=== PATIENT | female | born 1940 | race African-American/Black ===

== ENCOUNTER → 2017-01-30 | Outpatient (CLI) | payer OTHER ==
[~2017-01-30] VITALS: Ht 165.1 cm; Wt 88.9 kg
[~2017-01-30] MED LIST: ADULT LOW DOSE81 MG PO; AFLURIA 2045 MCG/010 IM; ALLEGRA ALLERG180 MG PO; ALLERGY10 M1 PO; ATORVASTATIN CA40 MG PO; BENADRYL25 MG PO; BRILINTA90 MG PO; CALCIUM 500 +1 EAC5 PO; CHLORTHALIDONE25 MG PO; CLARITIN10 MG PO; COLACE100 MG PO; CORICIDIN HBP1 EAC2; DOXYCYCLINE 10100 MG PO; EFFIENT10 MG PO; EQL GLUCOSAMIN1 EAC3 PO; FLAX OIL1000 MG PO; FLONASE 0.05%50 MCG NASAL; HYDROCODON-ACE1 EAC2 PO; HYDROCODON-ACE1 EAC7 PO; HYDROCODON-ACE1 EAC8 PO; HYDROCODONE-AP1 EA11 PO; HYDROCODONE-AP1 EAC6 PO; IBUPROFEN 400400 M1 PO; IBUPROFEN 400400 M2 PO; K-DUR 20 MEQ T20 MEQ PO; KLOR-CON 10 ER10 MEQ PO; KLOR-CON 1010 MEQ PO; LASIX 20 MG TAB20 MG PO; LIPITOR20 MG PO; LIPITOR40 MG PO; LISINOPRIL-HCT1 EAC2 PO; LISINOPRIL10 MG PO; LISINOPRIL20 MG PO; LISINOPRIL30 MG PO; MEDROLDOSEPACK PO; METOPROLOL TART25 MG PO; NABUMETONE 500500 M1 PO; NASONEX17 GM NASAL; NEURONTIN 300300 M1 PO; NIACIN 100MG T100 M1 PO; NITROSTAT0.4 M1 SL; NITROSTAT0.4 MG SL; NORCO 5-325 TA1 EACH PO; NORVASC5 MG PO; PEPCID20 MG PO; PLAVIX 75 MG TA75 M1 PO; POTASSIUM20 PO; PREDNISONE 20 M20 MG PO; TOPROL XL50 MG PO; TYLENOL325 MG PO; VALIUM2 MG PO; VESICARE10 M1 PO; VITAMIN B-12100 MC1 PO; VITAMIN B-12500 MCG PO; VITAMIN B-6250 MG PO; VITAMIN D1000 UNI1 PO; VITAMIN D31000 UNI2 PO; VITAMIN D3400 UNIT PO; VITAMINC500 PO; VOLTAREN GEL 1100 G1; XANAX 0.5 MG0.5 M1 PO; ZETIA10 MG PO; [UNRECOGNIZED DRUG - OTHER] PO; [UNRECOGNIZED DRUG - REMARK]
--- NOTE | ~2017-01-30 | HPC ---
[facility] [address] [place] [address] PAIN MANAGEMENT CONSULTATION Name: DOROTEO PALACIOS Room #: REG YOLY Johanna.#: [id number] Admission: 01/30/17 Attend Phys: Tremaine Gerber DO Discharge: Date of : 41 Report #: [id number] THIS REPORT FOR: //name// CC: SHAILESH Montgomery DATE OF SERVICE: 01/30/2017 DATE OF SERVICE: 01/30/2017 CHIEF COMPLAINT: Low back pain, right lower extremity pain and paresthesias. HISTORY OF PRESENT ILLNESS: As you know, the patient is a very pleasant 76-year-old female, who returns today in followup visit indicating that pain medication along with physical therapy is working beneficially for pain control. She just started physical therapy. She is about 3 weeks in and noticing excellent improvement. She is now placing pain score 4/10, states her pain is still sore and aching in sensation, exacerbated with standing, walking, improves with medications, cold compresses and physical therapy. She returns today in followup visit requesting refill on medications, as she is finding benefit with their use and no side effects. ALLERGIES: PENICILLIN, SIMVASTATIN. CURRENT MEDICATIONS: Atorvastatin 40 mg per day, furosemide 20 mg per day, hydrocodone/acetaminophen 7.5/325 mg one tab every 8 hours p.r.n. for pain, lisinopril 10 mg per day, cholecalciferol 400 units per day, nitroglycerin 0.4 mg p.r.n., chlorthalidone 25 mg once a day, Colace 100 mg per day, niacin 100 mg 5 tabs per day, VESIcare 10 mg per day, Voltaren gel applied topically up to 4 times a day, aspirin 81 mg per day, flaxseed oil 1000 mg once a day. SOCIAL HISTORY: The patient denies smoking tobacco. She continues to use snuff on a daily basis. Denies IV or illicit drug use. Denies any chronic alcohol use. She is unaccompanied today. IMAGING: No new imaging available. PHYSICAL EXAMINATION: VITAL SIGNS: Blood pressure 153/95, pulse 81, respiratory rate 14, unlabored. The patient 99% on room air, height 5 feet 5 inches tall, weight 196 pounds, BMI calculated 32.6. GENERAL: Well-developed, well-nourished, well-hydrated exogenously obese 76-year-old female. She appears her stated age. She is placing current pain score no greater than 4/10. HEENT: Normocephalic, atraumatic. Pupils equal, round, reactive to light. [address] [address] PAIN MANAGEMENT CONSULTATION Name: DOROTEO PALACIOS Room #: REG [facility] Matthias#: [id number] Admission: 01/30/17 Attend Phys: Tremaine Gerber DO Discharge: Date of : 41 Report #: [id number] Extraocular muscles are intact. Sclerae nonicteric without injection. NEUROLOGIC: Cranial nerves 2-12 grossly intact. Speech is fluent. The patient deemed an excellent historian. LUNGS: Clear. No wheeze, rhonchi or rales. CARDIOVASCULAR: Regular. No appreciable gallop or rub. ABDOMEN: Soft, obese, normoactive bowel sounds. EXTREMITIES: Show no clubbing, no cyanosis, no edema. MUSCULOSKELETAL: Lower extremity strength is equal and symmetrical 5/5. Active and passive range of motion of bilateral knees does intensify knee pain without radiation beyond the lateral calf area. Seated straight leg raising negative. Supine straight leg raising is positive on the right, negative left. Gait appears normal. ASSESSMENT: 1. Symptomatic lumbar radiculopathy. 2. Displacement of lumbar intervertebral disk with radiculopathy. 3. Lumbosacral spondylosis with radiculopathy. 4. Degeneration of lumbar spine. 5. Chronic intractable pain. PLAN: 1. The patient returns today in followup visit requesting refill on medications. She states the medications in conjunction with physical therapy, is working beneficially. The patient was seen by one of the orthopedic surgeons at [facility] and they then sent the patient to another pain physician. The patient chose to return to our clinic, as she feels care is optimal. She was started on physical therapy and has been doing very well. She returns today requesting medication management in conjunction with physical therapy, so that she can continue to strengthen and notice improvement in pain. 2. The patient was provided a prescription of hydrocodone 7.5/325 one tab every 8 hours p.r.n. for pain, I have given the patient #75 tablets, she was given releases of today and 6 weeks from today, 3 months' worth of medication based on how the patient is currently taking her therapy. 3. We will see the patient back in followup visit in 3 months or earlier if interventional treatment such as epidural injections. She has done well within the past as necessary. <ELECTRONICALLY SIGNED> By: Tremaine Gerber DO 01/30/17 1258 [id number] Tremaine Gerber DO /nt
[2017-01-30 09:31] VITALS: BP 153/95
== END | disposition home or self-care (01) ==
LOC: PAIN 07:06
DX: M51.16 Intervertebral disc disorders with radiculopathy, lumbar region (principal); M47.27 Other spondylosis with radiculopathy, lumbosacral region; G89.29 Other chronic pain; M51.36 Other intervertebral disc degeneration, lumbar region; Z68.32 Body mass index [BMI] 32.0-32.9, adult; Z79.899 Other long term (current) drug therapy; Z88.8 Allergy status to other drugs, medicaments and biological substances; Z88.0 Allergy status to penicillin

== ENCOUNTER → 2017-02-20 | Outpatient (CLI) | payer OTHER ==
[~2017-02-20] VITALS: Ht 165.1 cm; Wt 90.2 kg
--- NOTE | ~2017-02-20 | HPC ---
[facility] [place] [address] PAIN MANAGEMENT CONSULTATION Name: DOROTEO PALACIOS Room #: REG YOLY ChangTaranMiguelTaran#: [id number] Admission: 02/20/17 Attend Phys: Tremaine Gerber DO Discharge: Date of : 41 Report #: [id number] THIS REPORT FOR: //name// CC: Tremaine Montgomery Referring Physician DATE OF SERVICE: 02/20/2017 CHIEF COMPLAINT: Low back pain, right lower extremity pain and paresthesias. HISTORY OF PRESENT ILLNESS: As you know, the patient is a very pleasant 76-year-old female who has been followed by [facility] for years for symptomatic lumbar radiculopathy. She has been doing very well from a pain management standpoint, but of late, she began to experience increasing pain, right lower extremity symptoms have now reached a level that the patient places pain score of 6/10. She returns today in followup visit requesting an epidural injection under fluoroscopic guidance as she has noticed excellent benefit in the past with this type of procedure. She returns today without new inciting injury or trauma, no changes in her medical history, requesting an epidural injection to improve lumbar radicular symptoms. ALLERGIES: PENICILLIN and SIMVASTATIN. CURRENT MEDICATIONS: See chart. SOCIAL HISTORY: The patient denies smoking tobacco. She does use snuff on a daily basis. Denies IV or illicit drug use. Denies any chronic alcohol use. She is unaccompanied today. IMAGING: No new imaging available. PHYSICAL EXAMINATION: VITAL SIGNS: Blood pressure 148/92, pulse 80, respiratory rate 16 and unlabored, the patient is 97% on room air, height 5 feet 5 inches tall, weight 198.8 pounds, and BMI calculated 33.1. GENERAL: Well-developed, well-nourished, well-hydrated, exogenously obese 76-year-old female, appearing stated age, she is placing pain score today 6/10. HEENT: Normocephalic, atraumatic. Pupils are equal, round, and reactive to light. Extraocular muscles are intact. EXTREMITIES: Show no clubbing, no cyanosis, and no edema. MUSCULOSKELETAL: Seated straight leg raising negative. Supine straight leg raising positive right. David's test negative. Modified Gaenslen's positive for axial low back pain. Gait antalgic favoring right lower extremity over left. [address] [address] PAIN MANAGEMENT CONSULTATION Name: DOROTEO PALACIOS Room #: REG RYANObed Rizzo#: [id number] Admission: 02/20/17 Attend Phys: Tremaine Gerber DO Discharge: Date of : 41 Report #: [id number] ASSESSMENT: 1. Symptomatic lumbar radiculopathy. 2. Displacement of lumbar intervertebral disk with radiculopathy. 3. Lumbosacral spondylosis with radiculopathy. 4. Lumbar degeneration. 5. Chronic intractable pain. PLAN: 1. The patient returns today in followup visit with what appears to be recurrence of lumbar radicular symptoms involving low back and right lower extremity. The patient has similar distribution as previous evaluations, increase in pain have led the patient to return for an epidural injection. She has suffered no injury, no trauma, no changes in medical history that may have led to the recurrence of symptoms. She is requesting and we will perform an epidural injection today as she had noted excellent benefit in the past with these procedures. The patient was advised the risks and benefits of a lumbar epidural injection. These risks include, but are not necessarily limited to bleeding, bruising, infection, worsening of pain, no relief of pain, also risk of temporary or permanent muscle weakness, temporary or permanent nerve damage, possible paralysis and . The patient states understood and wished to proceed. 2. The patient will return to our clinic on an as needed basis for medication management and repeat epidural injections. PROCEDURE NOTE DESCRIPTION OF PROCEDURE: L5-S1 right paramedian epidural steroid injection under fluoroscopic guidance. After obtaining written consent, the patient was taken back to fluoroscopy suite, placed in prone position with pillow under abdomen to decrease lumbar lordosis. Skin overlying lumbosacral area was then prepped and draped in aseptic fashion. L5-S1 vertebral interspace identified by AP fluoroscopy. Skin and subcutaneous tissue overlying target site of injection was anesthetized with 3 mL of 1% lidocaine. A 20-gauge 3-1/2-inch Tuohy needle advanced under fluoroscopic guidance towards the epidural space using a right paramedian approach. Epidural space identified using loss of resistance to air technique. After negative aspiration for heme or cerebrospinal fluid, 1 mL of Omnipaque was injected. Lumbar epidurogram was confirmed using both AP and lateral fluoroscopy. After negative aspiration for heme or cerebrospinal fluid, 5 mL of a solution containing 2 mL 40 mg per mL, 80 mg total triamcinolone, 3 mL lidocaine 1% injected slowly. Needle retracted group home, flushed with 1 mL of 1% lidocaine and removed. The patient tolerated the procedure well. [address] [address] PAIN MANAGEMENT CONSULTATION Name: DOROTEO PALACIOS Room #: REG YOLY Matthias#: [id number] Admission: 02/20/17 Attend Phys: Tremaine Gerber DO Discharge: Date of : 41 Report #: [id number] The patient was escorted to recovery room in stable condition. No apparent complications. After meeting discharge criteria, the patient discharged home. By: 1216 [id number] Tremaine Gerber DO /nt
[2017-02-20 11:02] VITALS: BP 148/92
== END | disposition home or self-care (01) ==
LOC: PAIN 07:17
DX: M51.16 Intervertebral disc disorders with radiculopathy, lumbar region (principal); M47.27 Other spondylosis with radiculopathy, lumbosacral region; G89.29 Other chronic pain; Z88.0 Allergy status to penicillin; Z88.8 Allergy status to other drugs, medicaments and biological substances; Z87.891 Personal history of nicotine dependence

== ENCOUNTER → 2017-06-19 | Outpatient (CLI) | payer OTHER ==
[~2017-06-19] VITALS: Ht 165.1 cm; Wt 89.7 kg
[~2017-06-19] MED LIST changes: +CETIRIZINE HCL10 MG PO; +CIPRO500 MG PO; +CO Q-10100 MG PO; +FLUTICASONE PRO16 GM; +MOBIC15 MG PO; +OMEPRAZOLE 20 M20 M1 PO; +PROMETHAZINE/C118 ML PO
--- NOTE | ~2017-06-19 | HPC ---
[facility] [address] [place] [address] PAIN MANAGEMENT CONSULTATION Name: DOROTEO PALACIOS Room #: REG YOLY Spencer.#: [id number] Admission: 06/19/17 Attend Phys: Tremaine Gerber DO Discharge: Date of : 41 Report #: [id number] THIS REPORT FOR: //name// CC: Tremaine Montgomery MD DATE OF SERVICE: 06/19/2017 REFERRING PHYSICIAN: Mann Montgomery MD CHIEF COMPLAINT: Low back pain, right lower extremity pain and paresthesias. HISTORY OF PRESENT ILLNESS: As you know, the patient is a very pleasant 76-year-old female who returns today in followup visit for medication therapy. She indicates that the hydrocodone on an as needed basis works well for pain control. We last saw the patient in January and she has been using her hydrocodone appropriately only when pain is intensified. Overall, the patient states she is doing well, requesting refill on medications. She does relay information about a recent hospitalization due to suspected flu, symptoms resolved in about 3 weeks and states she is doing better overall. She returns for refill of medications. ALLERGIES: PENICILLIN and SIMVASTATIN. CURRENT MEDICATIONS: For pain, hydrocodone. SOCIAL HISTORY: The patient denies current smoking tobacco, she uses snuff on a daily basis. Denies IV or illicit drug use. Denies any chronic alcohol use. She is unaccompanied today. IMAGING: No new imaging available. PHYSICAL EXAMINATION: VITAL SIGNS: Blood pressure 131/84, pulse is 93, respiratory rate 16 and unlabored, the patient is 97% on room air, height 5 feet 5 inches tall, weight 197.8 pounds, BMI calculated 32.9. GENERAL: Well-developed, well-nourished, well-hydrated, exogenously obese 76-year-old female, appearing her stated age, pain is rated at around 2/10. HEENT: Normocephalic, atraumatic. Pupils are equal, round, and reactive to light. Extraocular muscles are intact. Speech is fluent. EXTREMITIES: Show no clubbing, no cyanosis, and no edema. MUSCULOSKELETAL: Gait appears to be antalgic favoring right lower extremity over left, this is mild. Modified Gaenslen's positive for axial low back pain. Seated straight leg raising negative. Supine straight leg raising positive on the right. [facility] [address] [place] [address] PAIN MANAGEMENT CONSULTATION Name: DOROTEO PALACIOS Room #: REG YOLY Johanna.#: [id number] Admission: 06/19/17 Attend Phys: Tremaine Gerber DO Discharge: Date of : 41 Report #: [id number] ASSESSMENT: 1. Symptomatic lumbar radiculopathy. 2. Displacement of a lumbar intervertebral disk with radiculopathy. 3. Lumbosacral spondylosis with radiculopathy. 4. Lumbar degeneration. 5. Chronic intractable pain. PLAN: 1. The patient returns today in followup visit indicating that the combination of epidural injections with medication management was quite beneficial, in fact providing upwards of 75% improvement in overall pain. The patient continues to experience good pain relief, now reporting pain score 2/10. The patient is utilizing her hydrocodone appropriately, she has not used the medication consistently, in fact her last refill of medication was in January. She returns today for refill of medications today to continue analgesic benefit as necessary. She does appear to be utilizing medication well, she does not appear to be under the influence of any medications and denies any side effects when she is on the therapy. 2. The patient was provided a prescription of hydrocodone 7.5/325 one tab p.o. q.8 hours p.r.n. for pain, I have given the patient #75, release dates of today, 4 weeks from today, 8 weeks from today, 3 months' or greater worth of medication. 3. The patient will return to our clinic on an as needed basis for possible repeat epidural injection, otherwise we will see the patient back in followup visit for medication management in at least 3 months. <ELECTRONICALLY SIGNED> By: Tremaine Gerber DO 07/03/17 0906 [id number] Tremaine Gerber DO /nt
[2017-06-19 10:07] VITALS: BP 131/84
== END ==
LOC: PAIN 06-06 06:36
DX: M51.16 Intervertebral disc disorders with radiculopathy, lumbar region (principal); G89.29 Other chronic pain; M47.27 Other spondylosis with radiculopathy, lumbosacral region; R06.5 Mouth breathing

== ENCOUNTER 2017-10-21 08:11 | Emergency (ER) | payer OTHER ==
[~2017-10-21] VITALS: Ht 165.1 cm; Wt 88.0 kg
[~2017-10-21 08:11] MED LIST changes: -MOBIC15 MG PO; -OMEPRAZOLE 20 M20 M1 PO
[2017-10-21 08:51] LABS: ABSOLUTE NEUTROPHILS 2.3 thou/uL (1.4-8.2); BASOPHILS 0.7 % (0.0-2.0); EOSINOPHILS 3.8 % (0.0-3.0); HEMOGLOBIN 13.7 gm/dL (12.0-15.0); LYMPHOCYTES 33.8 % (24.0-44.0); MCH 31.5 pg (26.0-34.0); MCHC 32.5 g/dL (28.0-37.0); MCV 96.8 fL (80.0-100.0); PLATELET COUNT 177 thou/uL (150-400); POLYS 50.7 % (36.0-66.0); RBC 4.34 mil/uL (4.20-5.00); RDW 14.6 % (10.5-14.5); WBC 4.5 thou/uL (4.0-11.0)
[2017-10-21 08:53] LABS: CALCIUM 9.6 mg/dL (8.5-10.1); CREATININE 0.8 mg/dL (0.6-1.0); POTASSIUM 4.8 mmol/L (3.5-5.1)
[2017-10-21] MEDS ORDERED: KLOR-CON 1010 MEQ PO (09:11)
[2017-10-21] MEDS ORDERED: OMEPRAZOLE 20 M20 M1 PO (09:11)
[2017-10-21 10:26] LABS: URINE BILIRUBIN NEGATIVE (Negative); URINE BLOOD NEGATIVE (Negative); URINE CLARITY CLEAR; URINE COLOR YELLOW; URINE GLUCOSE-RANDOM* NEGATIVE (Negative); URINE KETONES NEGATIVE (Negative); URINE LEUKOCYTES-REFLEX NEGATIVE (Negative); URINE NITRITE-REFLEX NEGATIVE (Negative); URINE PROTEIN (DIPSTICK) NEGATIVE (Negative); URINE SPECIFIC GRAVITY <= 1.005 (1.005-1.035); URINE UROBILINOGEN 0.2 E.U./dl (0.2-1.0)
[2017-10-21] MEDS ORDERED: MOBIC15 MG PO (11:20)
== END 2017-10-21 11:45 | disposition home or self-care (01) ==
LOC: ER 08:11
PROVIDERS: Emergency Medicine
DX: R60.0 Localized edema (principal); M25.551 Pain in right hip; M25.552 Pain in left hip; I10 Essential (primary) hypertension; E78.00 Pure hypercholesterolemia, unspecified; Z88.0 Allergy status to penicillin; Z88.8 Allergy status to other drugs, medicaments and biological substances

== ENCOUNTER → 2018-03-19 | Outpatient (CLI) | payer OTHER ==
[~2018-03-19] VITALS: Ht 165.1 cm; Wt 87.9 kg
[~2018-03-19] MED LIST changes: +MOBIC15 MG PO; +OMEPRAZOLE 20 M20 M1 PO
--- NOTE | ~2018-03-19 | HPC ---
[facility] [address] [place] [address] PAIN MANAGEMENT CONSULTATION Name: DOROTEO PALACIOS Room #: REG YOLY Matthias#: [id number] Admission: 03/19/18 Attend Phys: Ilene Chavez Discharge: Date of : 41 Report #: [id number] THIS REPORT FOR: //name// CC: Ilene Montgomery DICTATED BY: Ilene Chavez MACHINERY CLEANER DATE OF SERVICE: 03/19/2018 CHIEF COMPLAINT: Low back pain with right lower extremity pain and paresthesias. HISTORY OF PRESENT ILLNESS: This patient is a very pleasant 77-year-old, referred to our services from Dr. Mann Montgomery, who has since retired and she has a new primary care doctor for her symptomatic lumbar radiculopathy. The patient is on medical management for the last several years and has been very stable on this therapy, with no side effects. She does state that occasionally she has flare-ups in her low back and occasionally some neck pain, which she complained of today and has been seen acupuncture doctor, having that done weekly right now, then will go months without having it done. She rates her pain as an 8 on a scale of 1-10 and states that her pain is worse when she is walking and standing. She returns today for a followup visit for refill of her medications. ALLERGIES: PENICILLIN AND SIMVASTATIN. MEDICATIONS: Her medications that she currently takes on a daily basis are hydrocodone 7.5/325, omeprazole, potassium, CoQ10, Flonase spray, sertraline, Lipitor, Lasix, lisinopril, vitamin D, Colace, niacin, VESIcare, diclofenac gel p.r.n., aspirin and Flax seed oil. SOCIAL HISTORY: The patient denies smoking tobacco, but she does use snuff on a daily basis. She denies any IV or illicit drug use. She states that she has occasional alcohol use, but not on a daily basis. No new imaging on her today. PQRS: Vital Signs: Height 5 feet 5 inches, weight 193.8. The patient's BMI is 32.2. History of osteoarthritis in her neck, tailbone and knees. No history of rheumatoid arthritis. Her blood pressure was 140/87, pulse 87, respirations 16 and oxygen sat is 98. She is not a fall risk. She complains of no dizziness. No need to help with walking or standing and no falls in the last 3 months. She is no longer on any blood thinners and she does have a history of hypertension. [address] [address] PAIN MANAGEMENT CONSULTATION Name: DOROTEO PALACIOS [id number] Admission: 03/19/18 Attend Phys: Ilene Chavez Discharge: Date of : 41 Report #: [id number] Opioid therapy, she has been on that greater than 6 months and has an opioid sign contract with Dr. Tremaine Gerber. Risk assessment tool was done and she is at a low risk and her functional assessment tool is 12/70. Again, she says no recreational drug use. Exposure to tobacco, uses snuff and occasional alcohol use, not on a daily basis. PHYSICAL EXAMINATION: VITAL SIGNS: Blood pressure as stated above. GENERAL: Well-developed, well-nourished 77-year-old patient, appears her stated age. Placing her pain score at 8/10 today. HEENT: Normocephalic, atraumatic. Pupils equal, round and reactive to light. Speech is fluent. EXTREMITIES: No clubbing, no cyanosis, no edema. MUSCULOSKELETAL: Lower strength is symmetrical. Seated straight leg raising is negative. Supine straight leg raising positive on the right, about a 45 degree angle. ASSESSMENT: Symptomatic lumbar radiculopathy, lumbosacral spondylosis with radiculopathy, lumbar degeneration and chronic intractable pain. PLAN: 1. The patient returned to the clinic today for followup for medication management. She feels that the medications are working appropriately and gets good relief. She denies any side effects, such as constipation or daytime somnolence with these and would like to continue her medications for the next 3 months. 2. We reviewed the fact that opiate medications are being used to provide analgesia adequate to support activities of daily living, not attempting to achieve a specific pain score on the 0-10 Visual Analog Scale. The current opiate medications are providing sufficient analgesia to allow the patient to participate in activities of daily living. The patient is not exhibiting any aberrant behavior suggestive of drug diversion. The patient is not having any adverse reactions to medications. The patient is not suffering from daytime somnolence or mental acuity changes. The patient is managing opiate-induced constipation with appropriate givl-ttv-yvyirob agents and dietary considerations. The patient was counseled on concern for caution with operating a motor vehicle while using opiate medications. A physical exam was performed and the patient's functional status was evaluated. All patients with back pain were advised against the bed rest greater than 4 days and were advised to return to normal activities. Pain score assessment was noted and the treatment plan was reviewed with the patient. All current medications, both prescribed and OTC were reviewed and reconciled on the electronic medical record. Tobacco screening was accomplished and smoking cessation was advised when indicated. BMI was noted and diet/exercise [address] [address] PAIN MANAGEMENT CONSULTATION Name: DOROTEO PALACIOS Room #: REG Obed Spencer#: [id number] Admission: 03/19/18 Attend Phys: Ilene Chavez Discharge: Date of : 41 Report #: [id number] modification was recommended for all patients following outside normal parameters. I reviewed with the patient today their responsibilities to safeguard prescription medications, reviewed their responsibility to utilize medications only as prescribed by the physician. They are to seek and receive pain medications only from 1 physician group ( [facility]). They are to use 1 pharmacy and keep the clinic informed if they change pharmacies. Their responsibilities include making followup visits in a timely fashion and to avoid abrupt discontinuation of medication usage. Their responsibilities further include bringing their medications (bottles from the pharmacy with residual pills) to the visit for possible confirmation of pill counts and the patient understands it is their responsibility to submit to random drug screens to ensure both that the medications prescribed are present, and that no other controlled substances are present. All prescriptions provided today were generated electronically. 3. The patient was provided with hydrocodone 7.5/325 one tablet every 8 hours as needed for pain, has given the patient #75 pills released today, release again in 4 weeks and release again in 8 weeks. She is advised to take the medicine only as needed for her pain. We will see the patient back in followup within 3 months for ongoing medical therapy or earlier if she wishes to have interventional treatments with Dr. Tremaine Gerber as necessary. Care today was in collaboration with Dr. Tremaine Gerber. <ELECTRONICALLY SIGNED> By: Ilene Chavez 03/20/18 0857 1300 Ilene Chavez /aminta
[2018-03-19 09:01] VITALS: BP 140/87
== END ==
LOC: PAIN 06:54
DX: M54.16 Radiculopathy, lumbar region (principal); G89.4 Chronic pain syndrome; M54.2 Cervicalgia; I10 Essential (primary) hypertension; Z72.89 Other problems related to lifestyle; Z79.899 Other long term (current) drug therapy

== ENCOUNTER → 2018-07-30 | Outpatient (CLI) | payer OTHER ==
[~2018-07-30] VITALS: Ht 165.1 cm; Wt 85.3 kg
[2018-07-30 10:44] VITALS: BP 174/100
--- NOTE | 2018-07-30 11:11 | NUR ---
Pain Clinic Assessment: 1. History of Osteoarthritis: Not Applicable History of Rheumatoid Arthritis: Not Applicable 2. Height: 5 ft. 5 in. 165.1 cm. Weight: 188.0 lb. oz. 85.276 kg. Patient's BMI: 31.3 3. Vital Signs: BP: 174/100 Pulse: 82 Resp: 20 Temp: 02 Sat: 100 ECG Mon: 4. Pain Intensity: 8 5. Fall Risk: Dizziness: N Needs help standing or walking: Y Fallen in the last 3 months: N Fall risk comments: 6. Patient on Blood Thinner: None 7. History of Hypertension: Y 8. Opioid Therapy greater than 6 weeks: Y Opiate Contract Signed: 02/09/16 9. Risk Assessment Tool Provided: 0-LOW RISK 10. Functional Assessment Tool: 11. Recreational Drug Use: Never Drug Type: Tobacco Use: Exposure to Tobacco Smoke Tobacco Type: Amount or Packs/day: How Many Years: Alcohol Use: Yes Frequency: Weekly Quant:
--- NOTE | 2018-08-06 07:34 | HPC ---
[facility] [address] [place] [address] PAIN MANAGEMENT CONSULTATION Name: DOROTEO PALACIOS Room #: REG YOLY ChangTaranMiguelTaran#: [id number] Admission: 07/30/18 ������������������ Attend Phys: Magdalena Gerber DO Discharge: ������������������ Date of : 42 Report #: [id number] THIS REPORT FOR: //name// CC: MAGDALENA Means DATE OF SERVICE: 07/30/2018 REFERRING PHYSICIAN: Mann Montgomery M.D. CHIEF COMPLAINT: Left hip pain. HISTORY OF PRESENT ILLNESS: As you know, the patient is a very pleasant 78-year-old female who has been followed by our services for years for symptomatic lumbar radiculopathy involving the low back and right lower extremity. The patient states that she has been in a normal state of health, but has begun to experience left hip pain. She is able to localize pain over the left hip and into the groin. There is some distribution of symptoms along what appears to be the abductor on the left. Pain is elicited with standing and weightbearing as well as walking; improves with sitting and lying down. She returns today in followup visit to discuss treatment options for left hip pain. She is also requesting refill of her medications that she takes for her lumbar radiculopathy. She denies any injury or trauma that may have led to symptom development. She has had no side effects with the medications provided for pain control. ALLERGIES: PENICILLIN AND SIMVASTATIN. CURRENT MEDICATIONS: Hydrocodone/acetaminophen 7.5/325 one tab every 8 hours p.r.n. for pain, Coenzyme Q10 at 100 mg once a day, promethazine cough syrup p.r.n., fluticasone 2 sprays each nostril per day, cetirizine 10 mg per day, atorvastatin 40 mg per day, furosemide 20 mg per day, lisinopril 10 mg per day, cholecalciferol 1 tab per day, nitroglycerin 0.4 mg p.r.n., docusate sodium 100 mg once a day, niacin 100 mg once a day, VESIcare 10 mg once a day, diclofenac gel apply topically up to 4 times a day, 1% solution, aspirin 81 mg per day and flaxseed oil 1000 mg per day. SOCIAL HISTORY: The patient denies smoking tobacco. She uses snuff on a daily basis. Denies IV or illicit drug use. Denies any chronic alcohol use. Unaccompanied today. IMAGING: No new imaging available. PQRS: The patient has known osteoarthritic changes of the lumbar spine, [place] [address] [facility] Room #: REG Obed Rizzo#: [id number] Admission: 07/30/18 ������������������ Attend Phys: Magdalena Gerber DO Discharge: ������������������ Date of : 41 Report #: [id number] bilateral hips and mildly in the knees. No rheumatoid arthritis. She is placing pain intensity today at 8/10. She is a fall risk, but has not had a fall in the last 3 months. She is utilizing an assistive device for gait. She is not on blood thinners, treated for hypertension. She is on opioids for an extended period of time. She has a low risk for opioid addiction. Pain impact of 40/70, indicating moderate interference of daily activities secondary to pain. PHYSICAL EXAMINATION: VITAL SIGNS: Blood pressure 174/100, pulse 82 and respiratory rate 20 and unlabored. The patient is 100% on room air. Height 5 feet 5 inches tall, weight 188 pounds and BMI calculated at 31.3. GENERAL: Well-developed, well-nourished and well-hydrated 78-year-old female, appearing stated age, placing current pain score at 8/10. HEENT: Normocephalic, atraumatic. Pupils equal, round and reactive to light. Speech remains fluent. The patient deemed an excellent historian. LUNGS: Clear. No wheezing, rhonchi or rales. CARDIOVASCULAR: Regular. No appreciable gallop or rub. ABDOMEN: Soft, obese and nontender. EXTREMITIES: Show no clubbing, no cyanosis, no edema. MUSCULOSKELETAL: There is palpatory tenderness over the anterior hip and groin area. Deep palpation over the hip causes intensification of pain. Seated straight leg raising negative on the left. Supine straight leg raising negative on the left; positive right. David's test is negative on the right, positive left. Gait is antalgic, favoring left lower extremity over right. ASSESSMENT: 1. Left hip pain. 2. Symptomatic lumbar radiculopathy. 3. Displacement of the lumbar intervertebral disk with radiculopathy. 4. Lumbosacral spondylosis with radiculopathy. 5. Lumbar degeneration. 6. Chronic intractable pain. PLAN: 1. The patient has returned today in followup visit with increasing left hip pain. We were able to localize pain to the left hip specifically. There is no radicular component to the patient's symptoms. She is experiencing also some adductor discomfort on the left when compared to the right. This is likely compensatory to the left hip pain. We have discussed treatment options for the left hip pain today. The following was discussed with the patient: We discussed physical therapy, stretching exercise and core strengthening as a treatment option. We discussed medication management, adding a nonsteroidal anti-inflammatory to her current hydrocodone medication for baseline pain control. We discussed intra-articular hip injection and surgical options to [facility] [address] [place] [address] PAIN MANAGEMENT CONSULTATION Name: PARK PALACIOSGRADY Room #: REG YOLY Matthias#: [id number] Admission: 07/30/18 ������������������ Attend Phys: Magdalena Gerber DO Discharge: ������������������ Date of : 41 Report #: [id number] address suspected left hip pathology. After reviewing the risks and benefits of all proposed treatment options, the patient wished to move forward with a left intra-articular hip injection under fluoroscopic guidance. 2. The patient was advised on the risks and benefits of a left intra-articular hip injection. These risks include, but are not necessarily limited to bleeding, bruising, infection, worsening pain, no relief of pain, also risk of temporary or permanent muscle weakness, temporary or permanent nerve damage, possible joint destruction and . The patient states understood and wished to proceed. 3. The patient was provided a refill of prescription of her hydrocodone 7.5/325 one tab p.o. q. 8 hours p.r.n. for pain. I have given the patient #75, releasing today, 4 weeks from today, 8 weeks from today, 3 months' worth of medication. 4. We reviewed the fact that opiate medications are being used to provide analgesia adequate to support activities of daily living, not attempting to achieve a specific pain score on the 0-10 Visual Analog Scale. The current opiate medications are providing sufficient analgesia to allow the patient to participate in activities of daily living. The patient is not exhibiting any aberrant behavior suggestive of drug diversion. The patient is not having any adverse reactions to medications. The patient is not suffering from daytime somnolence or mental acuity changes. The patient is managing opiate-induced constipation with appropriate xxha-sre-ehcbsnh agents and dietary considerations. The patient was counseled on concern for caution with operating a motor vehicle while using opiate medications. A physical exam was performed and the patient's functional status was evaluated. All patients with back pain were advised against the bed rest greater than 4 days and were advised to return to normal activities. Pain score assessment was noted and the treatment plan was reviewed with the patient. All current medications, both prescribed and OTC were reviewed and reconciled on the electronic medical record. Tobacco screening was accomplished and smoking cessation was advised when indicated. BMI was noted and diet/exercise modification was recommended for all patients following outside normal parameters. I reviewed with the patient today their responsibilities to safeguard prescription medications, reviewed their responsibility to utilize medications only as prescribed by the physician. They are to seek and receive pain medications only from 1 physician group ( [facility]). They are to use 1 pharmacy and keep the clinic informed if they change pharmacies. Their responsibilities include making followup visits in a timely fashion and to avoid abrupt discontinuation of medication usage. Their responsibilities further include bringing their medications (bottles from the pharmacy with residual pills) to the visit for possible confirmation of pill counts and the patient understands it is their responsibility to submit to random drug screens to [address] [address] PAIN MANAGEMENT CONSULTATION Name: DOROTEO PALACIOS Room #: HOWARD Rizzo#: [id number] Admission: 07/30/18 ������������������ Attend Phys: Magdalena Gerber DO Discharge: ������������������ Date of : 41 Report #: [id number] ensure both that the medications prescribed are present, and that no other controlled substances are present. All prescriptions provided today were generated electronically. 5. We will see the patient back in followup visit on an as-needed basis for the next in the series of left intra-articular hip injections. Otherwise, we will see her back in 3 months for medication management. PROCEDURE NOTE PROCEDURE: Left intra-articular hip injection under fluoroscopic guidance. DESCRIPTION OF PROCEDURE: After obtaining written consent, the patient was taken back to fluoroscopy suite and placed in the supine position. The image intensifier was then brought into position over the left hip and AP imaging was obtained. The area overlying the left hip was then prepped and draped in aseptic fashion using chlorhexidine. A sterile marker was then placed over the injection site. A 27-gauge, 1-1/4 inch needle was then used to anesthetize the skin and subcutaneous tissue with 2 mL of 1% lidocaine. A 22-gauge 3-1/2 inch spinal needle with bent tip was advanced towards the proximal head of the femur. This was done under visualization with fluoroscopic imaging. The needle was advanced until reaching the proximal head of the femur, then retracted approximately 1 mm after negative aspiration for heme. A 1 mL of Omnipaque injected. An excellent left hip arthrogram was obtained. After negative aspiration for heme, 4 mL of a solution containing 1 mL 40 mg per mL, 40 mg total triamcinolone and 3 mL bupivacaine 0.5% injected slowly. Needle retracted correction, flushed with 1 mL of 1% lidocaine and removed. Sterile bandage placed over injection site. No new motor deficits present in the lower extremities following procedure. The patient tolerated the procedure well, carefully escorted to recovery room in stable condition. VAS before procedure rated at 8/10, VAS 10 minutes after procedure rated at 0/10. After meeting our discharge criteria, the patient was discharged home. ��������������������������������������������� <ELECTRONICALLY SIGNED> ���������������������������������������� By: Magdalena Gerber DO ��������������������������������������������� 08/06/18 0734 [id number] Magdalena Gerber DO /aminta
== END | disposition home or self-care (01) ==
LOC: PAIN 06:52
DX: M16.0 Bilateral primary osteoarthritis of hip (principal); M25.552 Pain in left hip; M51.16 Intervertebral disc disorders with radiculopathy, lumbar region; M47.27 Other spondylosis with radiculopathy, lumbosacral region; G89.29 Other chronic pain; I10 Essential (primary) hypertension; M19.90 Unspecified osteoarthritis, unspecified site; Z88.0 Allergy status to penicillin; Z88.8 Allergy status to other drugs, medicaments and biological substances; Z79.891 Long term (current) use of opiate analgesic; Z79.899 Other long term (current) drug therapy; Z98.890 Other specified postprocedural states

== ENCOUNTER → 2018-10-23 | Outpatient (CLI) | payer OTHER ==
[~2018-10-23] VITALS: Ht 165.1 cm; Wt 84.7 kg
[~2018-10-23] MED LIST changes: +HYDROCODON-ACE1 EAC5 PO; +LISINOPRIL-HCT1 EACH PO; +OXYBUTYNIN 5 MG5 M2 PO
[2018-10-23 10:35] VITALS: BP 165/87
--- NOTE | 2018-10-23 10:42 | NUR ---
Pain Clinic Assessment: 1. History of Osteoarthritis: Not Applicable History of Rheumatoid Arthritis: Not Applicable 2. Height: 5 ft. 5 in. 165.1 cm. Weight: 186.8 lb. oz. 84.732 kg. Patient's BMI: 31.1 3. Vital Signs: BP: 165/87 Pulse: 81 Resp: 18 Temp: 02 Sat: 98 ECG Mon: 4. Pain Intensity: 8 5. Fall Risk: Dizziness: N Needs help standing or walking: N Fallen in the last 3 months: N Fall risk comments: 6. Patient on Blood Thinner: None 7. History of Hypertension: Y 8. Opioid Therapy greater than 6 weeks: Y Opiate Contract Signed: 02/09/16 9. Risk Assessment Tool Provided: 0-LOW RISK 10. Functional Assessment Tool: 11. Recreational Drug Use: Never Drug Type: Tobacco Use: Exposure to Tobacco Smoke Tobacco Type: Amount or Packs/day: How Many Years: Alcohol Use: Yes Frequency: Quant:
--- NOTE | 2018-10-30 09:24 | HPC ---
[facility] [address] [place] [address] PAIN MANAGEMENT CONSULTATION Name: DOROTEO PALACIOS Room #: REG YOLY ChangTaranMiguel.#: [id number] Admission: 10/23/18 ������������������ Attend Phys: Tremaine Gerber DO Discharge: ������������������ Date of : 41 Report #: [id number] THIS REPORT FOR: //name// CC: Tremaine Means MD DATE OF SERVICE: 10/23/2018 REFERRING PHYSICIAN: Tremaine Denton MD CHIEF COMPLAINT: Low back pain, left hip pain, right groin pain. HISTORY OF PRESENT ILLNESS: As you know, the patient is a 78-year-old female returning today in followup visit with continued low back pain, left lower extremity pain and new onset of right groin and right lower extremity pain. She is placing pain score at 8/10. States pain is aching in sensation, exacerbated with standing, improves with medications, cold compresses, rest and relaxation. She indicates medications are working beneficially for pain control. She takes hydrocodone 7.5/325 up to 3 times a day p.r.n. for pain. She is requesting a possible increase in the medication in hopes of further analgesic benefit. She is denying side effects of somnolence, decrease in mental acuity, disorientation, confusion, mental slowing or constipation that cannot be resolved with ftto-wzb-xginhhu medications. She returns requesting adjustments in medication therapy. She denies new injury or trauma. ALLERGIES: PENICILLIN AND SIMVASTATIN. CURRENT MEDICATIONS: Hydrocodone 7.5/325 one tab every 8 hours p.r.n. for pain, Coenzyme Q 100 mg once a day, promethazine cough syrup p.r.n., fluticasone 2 sprays each nostril per day, cetirizine 10 mg per day, atorvastatin 40 mg per day, furosemide 20 mg per day, lisinopril 10 mg per day, cholecalciferol 1 tab per day, nitroglycerin 0.4 mg p.r.n., docusate sodium 100 mg per day, niacin 100 mg per day, VESIcare 10 mg per day, diclofenac gel 1% solution applied topically up to 4 times a day, aspirin 81 mg per day, flaxseed oil 1000 mg per day. SOCIAL HISTORY: The patient denies smoking tobacco. She uses snuff on a daily basis. She denies IV or illicit drug use. Denies any chronic alcohol use. She is unaccompanied today. IMAGING: No new imaging available. PQRS: The patient has known arthritic changes of the lumbar spine, bilateral hips, mildly involving knees. No rheumatoid arthritis. [place] [address] PAIN MANAGEMENT CONSULTATION Name: DOROTEO PALACIOS Room #: HOWARD Rizzo#: [id number] Admission: 10/23/18 ������������������ Attend Phys: Tremaine Gerber DO Discharge: ������������������ Date of : 41 Report #: [id number] intensity today at 8/10. She is not a fall risk, has not had a fall in the last 3 months. She is not on blood thinners, but is treated for hypertension. She is on chronic opioids and has a low opioid addiction potential. Pain impact score 40/70 indicating moderate interference in daily activities secondary to pain. PHYSICAL EXAMINATION: VITAL SIGNS: Blood pressure 165/87, pulse 81, respiratory rate 18 and unlabored. The patient is 98% on room air. Height 5 feet 5 inches tall, weight 186.8 pounds, BMI calculated 31.1. GENERAL: Well-developed, well-nourished, well-hydrated 78-year-old female appearing stated age. Pain is rated at 8/10. HEENT: Normocephalic, atraumatic. Pupils equal, round, reactive to light. EXTREMITIES: Show no clubbing, no cyanosis, no edema. MUSCULOSKELETAL: Palpatory tenderness is noted again over the left hip with active and passive range of motion. Flexion of the leg on the left exacerbates the left hip pain. She has palpatory tenderness over the paraspinal musculature of lower lumbar spine. No spinous process tenderness. There appears to be some giveaway strength with hip flexion on the right when compared to left. Pain is generated with motion in a lumbar radicular fashion upon what appears to be the L4 nerve root. ASSESSMENT: 1. Left hip pain. 2. Right hip pain. 3. Symptomatic lumbar radiculopathy. 4. Displacement of a lumbar intervertebral disk with radiculopathy. 5. Lumbosacral spondylosis with radiculopathy. 6. Lumbar degeneration. 7. Intractable pain. PLAN: 1. The patient returns today in followup visit with what appears to be increasing lumbar radicular symptoms, now involving the right lower extremity as well as left lower extremity. She also has known arthritic changes of the left hip and likely some changes in the right hip. We have discussed with the patient options for treatment, which include physical therapy, stretching exercises, core strengthening. We discussed medication management, adjusting her opioid from 7.5 to 10 mg 3 times a day p.r.n. We discussed lumbar epidural injections, also intraarticular hip injections. We also discussed surgical options. After reviewing risks and benefits of all proposed treatment options, the patient chose to make adjustments in medication management. 2. The patient was provided an increase in her hydrocodone from 7.5/325 to 10/325 one tab p.o. t.i.d. p.r.n. pain. We have given the patient #75 tablets for each month, releasing today and 4 weeks from today, 2 months' worth of medication. We did advise the patient that if this medication is ineffective [facility] [address] [place] [address] PAIN MANAGEMENT CONSULTATION Name: SUZANNEDOROTEO Room #: REG RYAN Matthias#: [id number] Admission: 10/23/18 ������������������ Attend Phys: Tremaine Gerber DO Discharge: ������������������ Date of : 41 Report #: [id number] interventional treatments may be necessary. 3. We reviewed the fact that opiate medications are being used to provide analgesia adequate to support activities of daily living, not attempting to achieve a specific pain score on the 0-10 Visual Analog Scale. The current opiate medications are providing sufficient analgesia to allow the patient to participate in activities of daily living. The patient is not exhibiting any aberrant behavior suggestive of drug diversion. The patient is not having any adverse reactions to medications. The patient is not suffering from daytime somnolence or mental acuity changes. The patient is managing opiate-induced constipation with appropriate jcbu-zta-hsgzrkl agents and dietary considerations. The patient was counseled on concern for caution with operating a motor vehicle while using opiate medications. A physical exam was performed and the patient's functional status was evaluated. All patients with back pain were advised against the bed rest greater than 4 days and were advised to return to normal activities. Pain score assessment was noted and the treatment plan was reviewed with the patient. All current medications, both prescribed and OTC were reviewed and reconciled on the electronic medical record. Tobacco screening was accomplished and smoking cessation was advised when indicated. BMI was noted and diet/exercise modification was recommended for all patients following outside normal parameters. I reviewed with the patient today their responsibilities to safeguard prescription medications, reviewed their responsibility to utilize medications only as prescribed by the physician. They are to seek and receive pain medications only from 1 physician group ( [facility]). They are to use 1 pharmacy and keep the clinic informed if they change pharmacies. Their responsibilities include making followup visits in a timely fashion and to avoid abrupt discontinuation of medication usage. Their responsibilities further include bringing their medications (bottles from the pharmacy with residual pills) to the visit for possible confirmation of pill counts and the patient understands it is their responsibility to submit to random drug screens to ensure both that the medications prescribed are present, and that no other controlled substances are present. All prescriptions provided today were generated electronically. 4. We will see the patient back in followup visit in 2 months or earlier if she wishes to look towards injection therapy. ��������������������������������������������� <ELECTRONICALLY SIGNED> ���������������������������������������� By: Tremaine Gerber DO ��������������������������������������������� 10/30/18 0924 [id number] Tremaine Gerber DO /nt
== END ==
LOC: PAIN 06:56
DX: M47.27 Other spondylosis with radiculopathy, lumbosacral region (principal); M51.16 Intervertebral disc disorders with radiculopathy, lumbar region; G89.4 Chronic pain syndrome; M25.551 Pain in right hip; M25.552 Pain in left hip; Z79.899 Other long term (current) drug therapy

== ENCOUNTER → 2019-02-26 | Outpatient (CLI) | payer OTHER ==
[~2019-02-26] VITALS: Ht 165.1 cm; Wt 84.4 kg
[2019-02-26 09:53] VITALS: BP 143/87
--- NOTE | 2019-02-26 10:16 | NUR ---
Pain Clinic Assessment: 1. History of Osteoarthritis: HIPS B/L LEGS B/L SHOULDERS History of Rheumatoid Arthritis: Not Applicable 2. Height: 5 ft. 5 in. 165.1 cm. Weight: 186.0 lb. oz. 84.369 kg. Patient's BMI: 31.0 3. Vital Signs: BP: 143/87 Pulse: 86 Resp: 16 Temp: 02 Sat: 98 ECG Mon: 4. Pain Intensity: 4 5. Fall Risk: Dizziness: N Needs help standing or walking: Y Fallen in the last 3 months: N Fall risk comments: 6. Patient on Blood Thinner: None 7. History of Hypertension: Y 8. Opioid Therapy greater than 6 weeks: Y Opiate Contract Signed: 02/09/16 9. Risk Assessment Tool Provided: LOW 10. Functional Assessment Tool: 11. Recreational Drug Use: Never Drug Type: Tobacco Use: Exposure to Tobacco Smoke Tobacco Type: Multiple Types Amount or Packs/day: How Many Years: Alcohol Use: Yes Frequency: Weekly Quant: 3-4
--- NOTE | 2019-02-27 07:23 | HPC ---
[facility] [place] [address] PAIN MANAGEMENT CONSULTATION Name: DOROTEO PALACIOS Room #: HOWARD FREDERICK Matthias#: [id number] Admission: 02/26/19 ������������������ Attend Phys: Ilene Chavez Discharge: ������������������ Date of : 42 Report #: [id number] THIS REPORT FOR: //name// CC: Ilene Means DATE OF SERVICE: 02/26/2019 CHIEF COMPLAINT: Low back pain, left hip pain, bilateral shoulder pain. HISTORY OF PRESENT ILLNESS: This is a very pleasant 78-year-old female who returns to the pain clinic today for refill of her medications that she has been using to help treat her ongoing low back pain. She is having occasional left hip pain and most recently had had right shoulder pain. She reports that she did have a cortisone injection from an orthopedic physician that was not helpful. She did see her chiropractor and then had some acupuncture, which did relieve a significant amount of her right shoulder pain. Her pain is rated a 4/10 today. It is an aching, throbbing pain, worse with standing too long, sitting too long or significant walking, but her medication is very beneficial as well as her acupuncture. The patient tells me that she is getting ready to travel to [place] and [place], so she is slightly early for her medications, but since she is going to be out of town for several weeks, she is needing a refill now. ALLERGIES: PENICILLIN AND ZOCOR. CURRENT LIST OF MEDICATIONS: Hydrocodone 10/325 p.r.n., oxybutynin 5 mg, lisinopril/hydrochlorothiazide 10/12.5, omeprazole 20 mg daily, Colace and aspirin. PQRS: 1. She has a history of osteoarthritis in her hips, legs and shoulders. Denies any rheumatoid arthritis. 2. Height is 5 feet 5 inches, weight is 186, BMI is 31. 3. Vital signs, 143/87, pulse is 86, respirations 16, oxygen sat is 98. 4. Pain score is 4/10. 5. Denies dizziness. Does need help walking. She uses a cane, has not fallen in the last 3 months. 6. The patient is not on any blood thinners, but does take medicine for hypertension. 7. Opioid therapy is greater than 6 weeks; therefore, an opioid signed contract is on the chart. Risk assessment is low. Functional assessment is 38/70. 8. Recreational drug use, she denies. She does use occasional snuff and occasional alcohol. [address] [address] PAIN MANAGEMENT CONSULTATION Name: DOROTEO PALACIOS Room #: REG [facility].#: [id number] Admission: 02/26/19 ������������������ Attend Phys: Ilene Chavez Discharge: ������������������ Date of : 41 Report #: [id number] We did check the prescription monitoring system. The patient last filled her prescription in December but needing to fill this medication today. According to the CDC guidelines, the patient's current morphine milliequivalent is 25 per day. PHYSICAL EXAMINATION: GENERAL: This is a well-developed, well-nourished, well-hydrated 78-year-old female who appears her stated age, placing her current pain score at 4/10 today. HEENT: Normocephalic, atraumatic. Extraocular eye muscles are intact. Mucous membranes are moist. EXTREMITIES: No clubbing, no cyanosis, no edema. MUSCULOSKELETAL: She has palpatory tenderness over her paraspinal musculature of the lower lumbar spine. Appears to have pain with hip flexion on the right when compared to the left. The patient has right shoulder tenderness with abduction and rotation of her shoulder joint. The patient walks with a slightly antalgic gait using a cane at all times. Her lower extremity strength judged to be 4/5 bilaterally. ASSESSMENT: 1. Bilateral hip pain. 2. Symptomatic lumbar radiculopathy. 3. Displacement of lumbar intervertebral disk with radiculopathy. 4. Lumbosacral spondylosis with radiculopathy. 5. Lumbar degeneration. 6. Right shoulder pain. We reviewed the fact that opiate medications are being used to provide analgesia adequate to support activities of daily living, not attempting to achieve a specific pain score on the 0-10 Visual Analog Scale. The current opiate medications are providing sufficient analgesia to allow the patient to participate in activities of daily living. The patient is not exhibiting any aberrant behavior suggestive of drug diversion. The patient is not having any adverse reactions to medications. The patient is not suffering from daytime somnolence or mental acuity changes. The patient is managing opiate-induced constipation with appropriate fkkk-cem-tbmwrnt agents and dietary considerations. The patient was counseled on concern for caution with operating a motor vehicle while using opiate medications. A physical exam was performed and the patient's functional status was evaluated. All patients with back pain were advised against the bed rest greater than 4 days and were advised to return to normal activities. Pain score assessment was noted and the treatment plan was reviewed with the patient. All current medications, both prescribed and OTC were reviewed and reconciled on the electronic medical record. Tobacco screening was accomplished and smoking cessation was advised when indicated. BMI was noted and diet/exercise [address] [address] PAIN MANAGEMENT CONSULTATION Name: DOROTEO PALACIOS Room #: REG YOLY Rizzo#: [id number] Admission: 02/26/19 ������������������ Attend Phys: Ilene Chavez Discharge: ������������������ Date of : 41 Report #: [id number] modification was recommended for all patients following outside normal parameters. I reviewed with the patient today their responsibilities to safeguard prescription medications, reviewed their responsibility to utilize medications only as prescribed by the physician. They are to seek and receive pain medications only from 1 physician group ( [facility]). They are to use 1 pharmacy and keep the clinic informed if they change pharmacies. Their responsibilities include making followup visits in a timely fashion and to avoid abrupt discontinuation of medication usage. Their responsibilities further include bringing their medications (bottles from the pharmacy with residual pills) to the visit for possible confirmation of pill counts and the patient understands it is their responsibility to submit to random drug screens to ensure both that the medications prescribed are present, and that no other controlled substances are present. All prescriptions provided today were generated electronically. PLAN: 1. We discussed treatment options with the patient today. The patient finds that her medications are very beneficial in controlling her pain. She denies any problems with overmedicated feeling or constipation. Scripts given today for hydrocodone 10/325, #75, to be released today and again in 4 weeks. The patient does take these sparingly and usually last greater than a month. 2. The patient is getting ready to travel to [place] and [place]. We will allow early refill, if she is needing, by the insurance company. The patient also encouraged to keep her medicines with her at all the time for safekeeping. 3. The patient is seen in collaboration with Dr. Tremaine Gerber today who did see the patient as well. ��������������������������������������������� <ELECTRONICALLY SIGNED> ���������������������������������������� By: Ilene Chavez ��������������������������������������������� 02/27/19 [id number] [id number] Ilene Chaevz /nt
== END ==
LOC: PAIN 06:57
DX: M47.27 Other spondylosis with radiculopathy, lumbosacral region (principal); M51.16 Intervertebral disc disorders with radiculopathy, lumbar region; Z88.0 Allergy status to penicillin; Z88.8 Allergy status to other drugs, medicaments and biological substances; Z79.899 Other long term (current) drug therapy; M25.551 Pain in right hip; M25.552 Pain in left hip

== ENCOUNTER → 2019-06-18 | Outpatient (CLI) | payer OTHER ==
[~2019-06-18] VITALS: Ht 165.1 cm; Wt 88.1 kg
[2019-06-18 14:17] VITALS: BP 160/104
--- NOTE | 2019-06-18 14:26 | NUR ---
Pain Clinic Assessment: 1. History of Osteoarthritis: HIPS B/L LEGS B/L SHOULDERS History of Rheumatoid Arthritis: Not Applicable 2. Height: 5 ft. 5 in. 165.1 cm. Weight: 194.2 lb. oz. 88.089 kg. Patient's BMI: 32.3 3. Vital Signs: BP: 160/104 Pulse: 91 Resp: 18 Temp: 02 Sat: 96 ECG Mon: 4. Pain Intensity: 7 5. Fall Risk: Dizziness: N Needs help standing or walking: N Fallen in the last 3 months: N Fall risk comments: 6. Patient on Blood Thinner: None 7. History of Hypertension: Y 8. Opioid Therapy greater than 6 weeks: Y Opiate Contract Signed: 02/09/16 9. Risk Assessment Tool Provided: LOW 10. Functional Assessment Tool: 11. Recreational Drug Use: Never Drug Type: Tobacco Use: Exposure to Tobacco Smoke Tobacco Type: Amount or Packs/day: How Many Years: Alcohol Use: Yes Frequency: Special Occasions Quant:
--- NOTE | 2019-06-19 16:02 | HPC ---
[facility] [address] [place] [address] PAIN MANAGEMENT CONSULTATION Name: DOROTEO PALACIOS Room #: REG YOLY Johanna.#: [id number] Admission: 06/18/19 Attend Phys: Ilene Chavez Discharge: Date of : 41 Report #: [id number] THIS REPORT FOR: //name// CC: Ilene Alarcon MD DATE OF SERVICE: 06/18/2019 CHIEF COMPLAINT: Low back pain and left hip pain. HISTORY OF PRESENT ILLNESS: This is a very pleasant 78-year-old female who returns to the pain clinic today for refill of her medications. We last saw her in February. She does take her hydrocodone very sparingly to help with her low back pain, neck pain as well as occasional shoulder pain. She reports her pain score is 7/10 today. It is an aching and throbbing pain. She reports that her pain is increased with prolonged standing and prolonged sitting. She feels that as long as she stretches, uses her medication and occasionally does chiropractor and acupuncture therapy, her pain is well controlled. She reports that some days she does need 3 pain pills a day, then she will go for a period where she will not need any medications to help treat her ongoing chronic pain. The patient reports she is getting ready to go to [place] for a month and is wanting a refill of her hydrocodone prior to going out of town. ALLERGIES: PENICILLIN and SIMVASTATIN. CURRENT LIST OF MEDICATIONS: Hydrocodone 10/325 p.r.n., oxybutynin, lisinopril/hydrochlorothiazide, amitriptyline, Colace and aspirin. PQRS: 1. She has a history of osteoarthritis in her legs, hips and shoulders. Denies any rheumatoid arthritis. 2. Height is 5 feet 5 inches, weight is 194, BMI is 32. 3. Vital signs 160/104, pulse is 91, respirations 18, oxygen sat is 96. 4. Pain score 7/10. 5. Denies dizziness, does not need help walking or standing, has not fallen in the last 3 months. She does occasionally use a cane. 6. The patient is not on any blood thinners, but does take medicine for hypertension, which is elevated today. Opioid therapy is greater than 6 weeks; therefore, an opioid signed contract is on the chart. Risk assessment tool is low. Functional assessment is 38/70. 7. Recreational drug use, she denies. She has exposure to tobacco use, using snuff and occasionally drinks alcohol. According to the prescription monitoring system, the patient is filling [address] [address] PAIN MANAGEMENT CONSULTATION Name: DOROTEO PALACIOS Room #: REG YOLY Rizzo#: [id number] Admission: 06/18/19 Attend Phys: Ilene Chavez Discharge: Date of : 42 Report #: [id number] Gerber, though she does not feel every month as needed use of her opioid medications. According to the CDC guidelines, she is less than 22 MME per day. PHYSICAL EXAMINATION: GENERAL: This is a well-developed, well-nourished, well-hydrated 78-year-old female who appears her stated age, placing her current pain score at 7/10. HEENT: Normocephalic, atraumatic. Pupils equal, round and reactive to light. EXTREMITIES: No clubbing, no cyanosis, no edema. MUSCULOSKELETAL: She has tenderness over her paraspinal musculature of her lumbar spine. She walks with the slightly antalgic gait using a cane today. Flexion of her leg on the left side exacerbates her left hip pain. Pain does radiate down the L4-L5 lumbar radicular symptoms. ASSESSMENT: 1. Bilateral hip pain. 2. Symptomatic lumbar radiculopathy. 3. Displacement of lumbar vertebral disk with radiculopathy. 4. Lumbosacral spondylosis with radiculopathy. 5. Lumbar degeneration. 6. Intractable pain. 7. Complex medical management under terms of written opioid agreement. PLAN: 1. We discussed treatment options with the patient today. The patient's blood pressure is elevated at 160/104. We encouraged her to call her primary care doctor regarding this increase. The patient reports that she is having a stressful time at home with the family member. She believes that this is why her blood pressure has been elevated. She does take her own blood pressure daily at home and it is much lower. We still advised the patient to notify her primary care doctor. 2. We will refill her hydrocodone 10/325, #75 for today and [address] Tremaine Gerber will send these electronically to her pharmacy. 3. The patient will call as needed for an appointment. The last visit was greater than 5 months ago by taking her medication sparingly. 4. The patient is seen in collaboration with Dr. Tremaine Gerber. <ELECTRONICALLY SIGNED> By: Ilene Chavez 06/19/19 1602 [id number] Ilene Chavez /nt
== END ==
LOC: PAIN 06:56
DX: M47.26 Other spondylosis with radiculopathy, lumbar region (principal); M25.551 Pain in right hip; M25.552 Pain in left hip; Z88.0 Allergy status to penicillin; Z88.8 Allergy status to other drugs, medicaments and biological substances

== ENCOUNTER → 2019-09-10 | Outpatient (CLI) | payer OTHER ==
[~2019-09-10] VITALS: Ht 165.1 cm; Wt 88.5 kg
[~2019-09-10] MED LIST changes: +CHILDREN'S ZYRT10 M1 PO; +TOVIAZ8 MG PO
[2019-09-10 09:35] VITALS: BP 127/75
--- NOTE | 2019-09-10 09:49 | NUR ---
Pain Clinic Assessment: 1. History of Osteoarthritis: HIPS B/L LEGS B/L SHOULDERS History of Rheumatoid Arthritis: Not Applicable 2. Height: 5 ft. 5 in. 165.1 cm. Weight: 195.2 lb. oz. 88.542 kg. Patient's BMI: 32.5 3. Vital Signs: BP: 127/75 Pulse: 113 Resp: 16 Temp: 02 Sat: 97 ECG Mon: 4. Pain Intensity: 3 5. Fall Risk: Dizziness: N Needs help standing or walking: Y Fallen in the last 3 months: N Fall risk comments: 6. Patient on Blood Thinner: None 7. History of Hypertension: Y 8. Opioid Therapy greater than 6 weeks: Y Opiate Contract Signed: 02/09/16 9. Risk Assessment Tool Provided: LOW 10. Functional Assessment Tool: 11. Recreational Drug Use: Never Drug Type: Tobacco Use: Exposure to Tobacco Smoke Tobacco Type: Amount or Packs/day: 'SNUFF' How Many Years: Alcohol Use: Yes Frequency: Weekly Quant: 3 COCKTAILS
--- NOTE | 2019-09-11 07:53 | HPC ---
[facility] [address] [place] [address] PAIN MANAGEMENT CONSULTATION Name: DOROTEO PALACIOS Room #: REG YOLY Johanna.#: [id number] Admission: 09/10/19 Attend Phys: Ilene Chavez Discharge: Date of : 41 Report #: [id number] THIS REPORT FOR: cc: Chilo Means MD, Logan F. MD Hocker,Ilene KENNY ~ CC: MAGDALENA GRIFFITH DATE OF SERVICE: 09/10/2019 CHIEF COMPLAINT: Low back pain and upper neck pain. HISTORY OF PRESENT ILLNESS: This is a very pleasant 79-year-old female who returns to the pain clinic today for refill of her medications. She is reporting she is doing quite well, rating her pain score at 3/10. She recently traveled to [place] in July and had acupuncture and cupping as well as heat therapy. While there, she found that very beneficial in controlling her back pain. She feels like she is able to walk more upright and has had significant less pain. She does report that she does get acupuncture here in [place] as well, though the [place] track laying supervisor did perform it differently and she received more benefit. She continues to find relief in taking occasional hydrocodone as well and is here today for refills. She denies any problems with constipation or daytime sleepiness as a result of her medications. ALLERGIES: ZOCOR AND PENICILLIN. CURRENT LIST OF MEDICATIONS: Atorvastatin, Zyrtec, Toviaz, hydrocodone 10/325, lisinopril/hydrochlorothiazide, omeprazole, Colace, and aspirin. PQRS: 1. She has a history of osteoarthritic changes in her legs, hips and shoulders. Denies any rheumatoid arthritis. 2. Height is 5 feet 5 inches, weight is 195, BMI is 32. Vital signs 127/75, pulse is 113, respirations 16, oxygen sat is 97%. Pain score is 3/10. 3. Denies dizziness. Does use a cane for ambulation and has not fallen in the last 3 months. 4. The patient is not on blood thinners, but does take medicine for hypertension. Her opioid therapy is greater than 6 weeks; therefore, an opioid signed contract is on the chart. Risk assessment tool is low. Functional assessment is 38/70. 5. Recreational drug use, she denies. She uses snuff on a daily basis and occasionally drinks alcohol. According to the prescription monitoring system, the patient is due to fill her medications in a few days. I encouraged her to fill them today. According to the CDC guidelines, her morphine mEq is 40 MMEs per day. We will check a random drug screen on this patient at her next visit. [address] [address] PAIN MANAGEMENT CONSULTATION Name: DOROTEO PALACIOS Room #: REG YOLY Rizzo#: [id number] Admission: 09/10/19 Attend Phys: Ilene Chavez Discharge: Date of : 42 Report #: [id number] PHYSICAL EXAMINATION: GENERAL: This is alert and orientated, very pleasant 79-year-old female who appears younger than her stated age, placing her pain score at 3/10 today. HEENT: Normocephalic, atraumatic. Extraocular eye muscles are intact. Mucous membranes are moist. EXTREMITIES: No cyanosis, no edema. MUSCULOSKELETAL: She has tenderness in her paraspinal muscles of her neck radiating into her shoulder. She also has tenderness in her lower back that radiates into her left leg following the L4-L5 dermatomal distribution. She walks with a slightly antalgic gait, uses a cane at all times. ASSESSMENT: 1. Bilateral hip pain. 2. Symptomatic lumbar radiculopathy. 3. Displacement of lumbar intervertebral disk with radiculopathy. 4. Lumbosacral spondylosis with radiculopathy. 5. Complex medical management under terms of written opioid agreement. We reviewed the fact that opiate medications are being used to provide analgesia adequate to support activities of daily living, not attempting to achieve a specific pain score on the 0-10 Visual Analog Scale. The current opiate medications are providing sufficient analgesia to allow the patient to participate in activities of daily living. The patient is not exhibiting any aberrant behavior suggestive of drug diversion. The patient is not having any adverse reactions to medications. The patient is not suffering from daytime somnolence or mental acuity changes. The patient is managing opiate-induced constipation with appropriate kkbc-wdy-njmsgyz agents and dietary considerations. The patient was counseled on concern for caution with operating a motor vehicle while using opiate medications. PLAN: 1. We discussed treatment options with the patient today. The patient finds her medications very beneficial as well as occasional acupuncture. She recently had this performed in July and has continued to have decreased pain since that time. 2. We discussed trying to take the minimal amount of opioids that she is needed lowest most effective dose, especially during this time of COVID virus in case there is a disruption in the supply chain. The patient verbalizes understanding. The last few weeks, she has been able to decrease slightly due to the acupuncture. We will send medications electronically today for hydrocodone , #75 for today and 4 weeks. These will be sent by Dr. Penaloza [address] [address] PAIN MANAGEMENT CONSULTATION Name: DOROTEO PALACIOS Room #: HOWARD SpencerTaran#: [id number] Admission: 09/10/19 Attend Phys: Ilene Chavez Discharge: Date of : 41 Report #: [id number] Buzz who did collaborate care for this patient today. The patient will return in 2 months. At that time, we will repeat a urine drug screen. <ELECTRONICALLY SIGNED> By: Ilene Chavez 09/11/19 0753 [id number] Ilene Chavez /aminta
== END | disposition home or self-care (01) ==
LOC: PAIN 06:47
DX: M25.551 Pain in right hip (principal); M25.552 Pain in left hip; M51.16 Intervertebral disc disorders with radiculopathy, lumbar region; M47.27 Other spondylosis with radiculopathy, lumbosacral region; G89.29 Other chronic pain; I10 Essential (primary) hypertension; Z98.890 Other specified postprocedural states; Z79.899 Other long term (current) drug therapy; Z79.891 Long term (current) use of opiate analgesic; Z88.0 Allergy status to penicillin

== ENCOUNTER → 2019-12-23 | Outpatient (CLI) | payer OTHER ==
[~2019-12-23] VITALS: Ht 165.1 cm; Wt 90.1 kg
--- NOTE | ~2019-12-23 | HPC ---
[facility] [place] [address] PAIN MANAGEMENT CONSULTATION Name: DOROTEO PALACIOS Room #: HOWARD FREDERICK Matthias#: [id number] Admission: 12/23/19 Attend Phys: Tremaine Gerber DO Discharge: Date of : 42 Report #: [id number] THIS REPORT FOR: cc: Chilo Means MD, Logan F. MD Johnson, James E. DO ~ CC: Tremaine Means MD DATE OF SERVICE: 12/23/2019 CHIEF COMPLAINT: Low back pain, lower extremity pain with paresthesias. HISTORY OF PRESENT ILLNESS: As you know, the patient is a very pleasant 79-year-old female who returns today in followup visit with acute onset of low back pain, left lower extremity pain with paresthesias that presented after a fall out of the bed sustained approximately 1 week ago. The patient states she was in her normal state of health and doing well when her back pain began just after falling out of her bed. She did not seek evaluation or treatment after this incident. She did have some fairly large hematomas on the forehead and zygomatic arch on the right side after the fall. She did not have any ecchymosis over the lumbar spine. She reports pain today at level of 7/10. She returns today in followup visit with recurrence of lumbar radiculopathy after this incident. She is requesting an epidural injection. She is also requesting refill on medications as she does find them beneficial for her baseline pain. ALLERGIES: ZOCOR, PENICILLIN. CURRENT MEDICATIONS: Aspirin, docusate sodium, fluticasone, omeprazole, lisinopril, hydrochlorothiazide, Toviaz, cetirizine, atorvastatin, hydrocodone. SOCIAL HISTORY: The patient denies smoking tobacco. She does use snuff. She denies IV or illicit drug use. Denies any chronic alcohol use. She is retired, unaccompanied at today's visit. IMAGING: No new imaging available. PQRS: The patient has known arthritic changes of the lumbar spine, bilateral hips, bilateral knees and bilateral shoulders. No rheumatoid arthritis diagnosis. She is placing pain today at 7/10. She is a fall risk and has had a fall just recently out of her bed 1 week ago. She is not on blood thinners. She is treated for hypertension. She is on chronic opioids, but does have a low opioid addiction potential. Pain impact score 38/70, moderate interference of daily activities secondary to pain. [facility] [address] [place] [address] PAIN MANAGEMENT CONSULTATION Name: DOROTEO PALACIOS Room #: REG YOLY ChangNereida#: [id number] Admission: 12/23/19 Attend Phys: Tremaine Gerber DO Discharge: Date of : 41 Report #: [id number] PHYSICAL EXAMINATION: VITAL SIGNS: Blood pressure 117/83, pulse 93, respiratory rate 16 and unlabored. The patient is 97% on room air. Height 5 feet 5 inches tall, weight 198.6 pounds and BMI calculated 33. GENERAL: Well-developed, well-nourished, well-hydrated 79-year-old female appearing stated age, pain is rated today 7/10. HEENT: Normocephalic, atraumatic. Pupils equal, round and reactive. Speech is fluent. EXTREMITIES: Show no clubbing, no cyanosis, no edema. MUSCULOSKELETAL: Lower extremity strength appears symmetrical 5/5, intact to light touch from L1 through S2 dermatomes. Seated straight leg raising negative. Supine straight leg raising is positive. David's test is negative. Modified Gaenslen's positive for axial low back pain. ASSESSMENT: 1. Symptomatic lumbar radiculopathy. 2. Displacement of lumbar intervertebral disk with radiculopathy. 3. Lumbosacral spondylosis with radiculopathy. 4. Complicated medication management utilizing scheduled medications. PLAN: 1. The patient returns today in followup visit to undergo lumbar epidural injection under fluoroscopic guidance. She indicates pain began right after her fall out of bed. This led to recurrence of her typical lumbar radicular pain. She has requested an epidural to be performed today to address her 7/10 pain. She has been advised of risks and benefits of the procedure, states understood and wished to proceed. 2. The patient was provided refill prescription of hydrocodone 10/325 mg dose. She takes 1 tab p.o. t.i.d. p.r.n. pain. I have given the patient, #75 tablets to release today and 4 weeks from today, 2 months' worth of medication. The patient was advised to take the medication only when pain is intolerable, not to rely on the medication prophylactically. 3. We will see the patient back in followup visit for possible next in the series of lumbar epidural injections. Otherwise, we will see her back for medication management in 2-3 months. PROCEDURE NOTE: DESCRIPTION OF PROCEDURE: L5-S1 left parasagittal epidural steroid injection under fluoroscopic guidance. After obtaining written consent, the patient was taken back to fluoroscopy suite, placed in prone position with pillow under abdomen to decrease lumbar lordosis. Skin overlying lumbosacral area then prepped and draped in aseptic fashion. L5-S1 vertebral interspace identified by AP fluoroscopy. Skin and subcutaneous tissue overlying target site injection anesthetized with 3 mL of 1% [address] [place] [address] PAIN MANAGEMENT CONSULTATION Name: PARK PALACIOSGRADY Room #: REG YOLY Spencer.#: [id number] Admission: 12/23/19 Attend Phys: Tremaine Gerber DO Discharge: Date of : 41 Report #: [id number] lidocaine. A 20-gauge 3-1/2 inch Tuohy needle advanced under fluoroscopic guidance towards the epidural space using a left parasagittal approach. Epidural space identified using loss of resistance to air technique. After negative aspiration for heme or cerebrospinal fluid, 1 mL of Omnipaque injected. Lumbar epidurogram confirmed using both AP and lateral fluoroscopy. After negative aspiration for heme or cerebrospinal fluid, 5 mL of a solution containing 2 mL 40 mg per mL, 80 mg total triamcinolone along with 3 mL lidocaine 1% injected slowly. Needle retracted care home, flushed with 1 mL of 1% lidocaine and then removed. Sterile bandage placed over injection site. No new motor deficits present in the lower extremities following procedure. The patient tolerated procedure well, carefully escorted to recovery room in stable condition. No apparent complication. After meeting discharge criteria, the patient discharged home. By: [id number] Tremaine Gerber DO /nt
[2019-12-23 13:30] VITALS: BP 117/83
--- NOTE | 2019-12-23 13:51 | NUR ---
Pain Clinic Assessment: 1. History of Osteoarthritis: HIPS B/L LEGS B/L SHOULDERS History of Rheumatoid Arthritis: Not Applicable 2. Height: 5 ft. 5 in. 165.1 cm. Weight: 198.6 lb. oz. 90.084 kg. Patient's BMI: 33.0 3. Vital Signs: BP: 117/83 Pulse: 93 Resp: 16 Temp: 02 Sat: 97 ECG Mon: 4. Pain Intensity: 7 5. Fall Risk: Dizziness: N Needs help standing or walking: Y Fallen in the last 3 months: Y Fall risk comments: 6. Patient on Blood Thinner: None 7. History of Hypertension: Y 8. Opioid Therapy greater than 6 weeks: Y Opiate Contract Signed: 02/09/16 9. Risk Assessment Tool Provided: LOW 10. Functional Assessment Tool: 11. Recreational Drug Use: Never Drug Type: Tobacco Use: Exposure to Tobacco Smoke Tobacco Type: Amount or Packs/day: How Many Years: Alcohol Use: Yes Frequency: Quant:
== END | disposition home or self-care (01) ==
LOC: PAIN 06:59
PROVIDERS: ATTEND Anesthesiology Pain Medicine
DX: M51.16 Intervertebral disc disorders with radiculopathy, lumbar region (principal); M47.27 Other spondylosis with radiculopathy, lumbosacral region; G89.29 Other chronic pain; I25.10 Atherosclerotic heart disease of native coronary artery without angina pectoris; M19.90 Unspecified osteoarthritis, unspecified site; Z98.890 Other specified postprocedural states; Z79.899 Other long term (current) drug therapy; Z79.82 Long term (current) use of aspirin; Z79.891 Long term (current) use of opiate analgesic; Z88.0 Allergy status to penicillin; Z88.8 Allergy status to other drugs, medicaments and biological substances

== ENCOUNTER → 2020-03-09 | Outpatient (CLI) | payer OTHER ==
[~2020-03-09] VITALS: Ht 157.5 cm; Wt 89.4 kg
[2020-03-09 12:43] VITALS: BP 146/87
--- NOTE | 2020-03-09 12:53 | NUR ---
Pain Clinic Assessment: 1. History of Osteoarthritis: HIPS B/L LEGS B/L SHOULDERS History of Rheumatoid Arthritis: Not Applicable 2. Height: 5 ft. 2 in. 157.5 cm. Weight: 197.0 lb. oz. 89.359 kg. Patient's BMI: 36.0 3. Vital Signs: BP: 146/87 Pulse: 97 Resp: 16 Temp: 02 Sat: 99 ECG Mon: 4. Pain Intensity: 8 5. Fall Risk: Dizziness: N Needs help standing or walking: N Fallen in the last 3 months: Y Fall risk comments: 6. Patient on Blood Thinner: None 7. History of Hypertension: Y 8. Opioid Therapy greater than 6 weeks: Y Opiate Contract Signed: 02/09/16 9. Risk Assessment Tool Provided: LOW-3 10. Functional Assessment Tool: 59/70 11. Recreational Drug Use: Never Drug Type: Tobacco Use: Exposure to Tobacco Smoke Tobacco Type: Amount or Packs/day: How Many Years: Alcohol Use: Yes Frequency: Quant:
--- NOTE | 2020-03-10 15:45 | HPC ---
[facility] [address] [place] [address] PAIN MANAGEMENT CONSULTATION Name: DOROTEO PALACIOS Room #: HOWARD SepncerTaran#: [id number] Admission: 03/09/20 Attend Phys: Ilene Chavez Discharge: Date of : 41 Report #: [id number] THIS REPORT FOR: cc: Chilo Means MD, Logan F. MD Hocker,Ilene KENNY ~ CC: Tremaine Gerber DO DATE OF SERVICE: 03/09/2020 CHIEF COMPLAINT: Low back pain, lower extremity pain and paresthesias. HISTORY OF PRESENT ILLNESS: The patient returns today for refill of her opioid medications. She is a very pleasant 79-year-old female who is a longstanding patient of Dr. Tremaine Gerber. She did have a lumbar epidural steroid injection by him in December. She felt that it was beneficial in reducing some of her pain, but feels that it has gradually returned. She is reporting significant leg pain in her lower extremities in the inner portion of her thighs as well as her calves. She states this has been ongoing for about a month. She did have plain film x-rays provided by her primary care doctor. She reports to me that he stated all of her pain was coming from her back. She has had ongoing issues for quite some time that is why we hope to treat her with opioid medications. Today, she is rating her pain score as an 8/10 and has not taken a pain pill since last Sunday due to the fact that she had driving to do and her medications make her sleepy at times, so she prefers to take them only when she is going to be at home all day. The patient does complain of pain in her bilateral groins again that radiates into her thighs and calves. It is a chronic aching pain. Does not state it is Charley horse like sensations. She said it is worse when she gets up and walks as well as using the steps. She feels like her left leg is slightly weaker than the right though she has not fallen. She has been using pain patches of lidocaine from [id number] as well as her medications. ALLERGIES: PENICILLIN, SIMVASTATIN. CURRENT LIST OF MEDICATIONS: Aspirin, Colace, omeprazole, lisinopril, Zyrtec, hydrocodone 10/325. PQRS: 1. She has osteoarthritic changes in her spine, hips, legs and shoulders. Denies any rheumatoid arthritis. 2. Height is 5 feet 2 inches, weight is 197, BMI is 36. Vital signs 146/87, pulse is 97, respirations 16, oxygen sat is 99, pain score is 8/10. 3. Fall risk. Denies dizziness, does not need help walking or standing, has fallen in the last 3 months prior to her last appointment. [place] [address] PAIN MANAGEMENT CONSULTATION Name: DOROTEO PALACIOS Room #: REG YOLY Rizzo#: [id number] Admission: 03/09/20 Attend Phys: Ilene Chavez Discharge: Date of : 41 Report #: [id number] on any blood thinners, but does take medicine for hypertension. Opioid therapy is greater than 6 weeks; therefore, an opioid signed contract is on the chart. Risk assessment is low. Functional assessment is 59/70. 4. Recreational drug use, she denies. She does use snuff and occasionally drinks alcohol. According to the prescription monitoring system, she is due to fill her medications today. She does take these very sparingly and has not had any medications in several days; therefore, we will attempt a urine drug screen at her next visit when she has taken medications. PHYSICAL EXAMINATION: GENERAL: This is a well-developed, well-nourished, well-hydrated 79-year-old female who appears her stated age, placing her current pain score at 8/10. HEENT: Normocephalic, atraumatic. Pupils equal, round and reactive to light. Speech is fluent. She is wearing a mask and glasses. EXTREMITIES: No clubbing, no cyanosis, no edema. MUSCULOSKELETAL: Straight leg raising is positive bilaterally. Modified Gaenslen is positive for axial low back pain. Lower extremity strength appears slightly diminished in the left leg when compared to the right. Pain radiates from her lumbar spine into her bilateral groins following the L2-L3, L3-L4 dermatomal distributions. She has a slightly antalgic gait. IMPRESSION: 1. Symptomatic lumbar radiculopathy. 2. Displacement of lumbar intervertebral disk with radiculopathy. 3. Lumbosacral spondylosis with radiculopathy. 4. Complicated medical management utilizing scheduled medications. We reviewed the fact that opiate medications are being used to provide analgesia adequate to support activities of daily living, not attempting to achieve a specific pain score on the 0-10 Visual Analog Scale. The current opiate medications are providing sufficient analgesia to allow the patient to participate in activities of daily living. The patient is not exhibiting any aberrant behavior suggestive of drug diversion. The patient is not having any adverse reactions to medications. The patient is not suffering from daytime somnolence or mental acuity changes. The patient is managing opiate-induced constipation with appropriate [id number] agents and dietary considerations. The patient was counseled on concern for caution with operating a motor vehicle while using opiate medications. PLAN: 1. We discussed treatment options with the patient today. She felt that the epidural was very beneficial that Dr. Tremaine Gerber performed in December, though her pain has returned in slightly different dermatomes. The patient is wishing to have another epidural steroid injection. Upon examination, I think that she may benefit from another injection since it has been greater than 3 months. We will schedule her for this next week and I encouraged her not to have her flu [facility] [address] [place] [address] PAIN MANAGEMENT CONSULTATION Name: SUZANNEDOROTEO Room #: REG RYANObed Rizzo#: [id number] Admission: 03/09/20 Attend Phys: Ilene Chavez Discharge: Date of : 41 Report #: [id number] vaccination until after her injection. 2. We will provide the patient with a script for hydrocodone 10/325 one tablet up to 3 times a day, #75 for today and 4-week release. At times, the patient states the medication does make her slightly sleepy. I encouraged her to split the tablet in half during the daytime hours. The patient does not take her medicine on a daily basis. Two prescriptions usually last her greater than 3 months. She denies any problems with constipation as a result of her medications. 3. The patient is seen in collaboration with Dr. Tremaine Gerber who did send her medications electronically. <ELECTRONICALLY SIGNED> By: Ilene Chavez 03/10/20 1545 [id number] Ilene Chavez /aminta
== END ==
LOC: PAIN 06:46
PROVIDERS: ATTEND Clinical Nurse Specialist Adult Health
DX: M47.27 Other spondylosis with radiculopathy, lumbosacral region (principal); M51.16 Intervertebral disc disorders with radiculopathy, lumbar region; F11.20 Opioid dependence, uncomplicated; Z88.8 Allergy status to other drugs, medicaments and biological substances; Z79.899 Other long term (current) drug therapy

== ENCOUNTER → 2020-03-16 | Outpatient (CLI) | payer OTHER ==
[~2020-03-16] VITALS: Ht 157.5 cm; Wt 81.5 kg
--- NOTE | ~2020-03-16 | HPC ---
[facility] [place] [address] PAIN MANAGEMENT CONSULTATION Name: DOROTEO PALACIOS Room #: HOWARD SpencerTaran#: [id number] Admission: 03/16/20 Attend Phys: Tremaine Gerber DO Discharge: Date of : 41 Report #: [id number] CC: Tremaine Means DATE OF SERVICE: 03/16/2020 CHIEF COMPLAINT: Low back pain, lower extremity pain with paresthesias. HISTORY OF PRESENT ILLNESS: As you know, the patient is a very pleasant 79-year-old female, who has returned today in followup visit per the request of her nurse practitioner to undergo lumbar epidural injection under fluoroscopic guidance. Patient reports pain levels today at a level of 6/10. Pain begins in low back, radiates down both legs, right greater than left. She denies injury or trauma that may have led to symptom development. As you are aware, the patient has had symptoms like this in the past and was treated well with epidural injections. She returns today in followup visit, denying new injury or trauma that may have led to symptom occurrence. She returns for the next in the series of epidural injections in hopes of improving pain. ALLERGIES: PENICILLIN AND SIMVASTATIN. CURRENT MEDICATIONS: Aspirin, Colace, omeprazole, lisinopril, Zyrtec, hydrocodone. SOCIAL HISTORY: The patient reports no tobacco smoking. Denies IV or illicit drug use. Denies any chronic alcohol use. She is retired, retired years ago, unaccompanied today. IMAGING: There is no new imaging available. PQRS: The patient has known arthritic changes of the cervical spine, lumbar spine, bilateral hips, bilateral knees and shoulders. No rheumatoid arthritis diagnosis. She is placing pain intensity at 6/10. She is a fall risk, but has not had a fall in last 3 months. She does use a cane for ambulation and balance. She is not on blood thinners, but is treated for hypertension. She is on chronic opioids and has a low opioid addiction potential based on our assessment tool. Pain impact is rated at 59/70, severe interference of daily activities secondary to pain. PHYSICAL EXAMINATION: VITAL SIGNS: Blood pressure 144/86, pulse 80, respiratory rate 18 and unlabored. The patient is 100% on room air. Height 5 feet 2 inches tall, weight 179.6 pounds, BMI calculated 32.8. GENERAL: A well-developed, well-nourished, well-hydrated 79-year-old female appearing stated age, pain is rated today 6/10. HEENT: Normocephalic, atraumatic. Pupils equal, round and reactive. NEUROLOGIC: Speech is fluent. The patient deemed an excellent historian. EXTREMITIES: Show no clubbing, no cyanosis, no edema. MUSCULOSKELETAL: Lower extremity strength appears symmetrical 5/5. Slight giveaway strength noted with hip flexion, knee extension on the right when compared to left. This is due to pain generation in the buttock and posterolateral thigh. Seated straight leg raising is mildly positive right. Supine straight leg raising positive right. David's test is negative. Modified Gaenslen's positive for axial low back pain. Ankle clonus negative. ASSESSMENT: 1. Symptomatic lumbar radiculopathy. 2. Displacement of lumbar intervertebral disk with radiculopathy. 3. Lumbosacral spondylosis with radiculopathy. 4. Lumbar degeneration. 5. Chronic intractable pain. PLAN: 1. The patient returns today in followup visit to undergo lumbar epidural injection under fluoroscopic guidance to address 6/10 pain. The patient was seen in consultation by nurse practitioner, Ilene Chavez at the patient's last visit for medication management. It was determined that the patient would likely see improvement with an epidural injection. She was established today's appointment. The patient is placing pain score today is 6/10. She denies new injury or trauma. She indicates pain begins in low back, radiates down mainly the right leg, but intermittently on the left. The patient has made today's appointment to undergo lumbar epidural injection under fluoroscopic guidance. She has been advised risks and benefits of this procedure. These risks include but are not necessarily limited to bleeding, bruising, infection, worsening pain, no relief of pain, also risk of temporary or permanent muscle weakness, temporary or permanent nerve damage, possible paralysis and . The patient states understood and wished to proceed. 2. No medication changes made at today's visit. The patient will continue current medical therapy as prior prescribed. 3. We will see the patient back in followup visit on an as needed basis for possible next in the series of lumbar epidural injections. Otherwise, we will see her back for her medication management refills on the previously agreed upon appointment time. PROCEDURE NOTE DESCRIPTION OF PROCEDURE: L4-L5 interlaminar epidural steroid injection under fluoroscopic guidance. After obtaining written consent, the patient was taken back to fluoroscopy suite, placed in prone position with pillow under abdomen to decrease lumbar lordosis. Skin overlying lumbosacral area prepped and draped in aseptic fashion. The L4-L5 vertebral interspace identified by AP fluoroscopy. Skin and subcutaneous tissue overlying target site injection anesthetized with 3 mL of 1% lidocaine. A 20-gauge 3-1/2 inch Tuohy needle advanced under fluoroscopic guidance towards the epidural space using a parasagittal approach. Epidural space identified using loss of resistance to air technique. After negative aspiration for heme or cerebrospinal fluid, 1 mL of Omnipaque injected. Lumbar epidurogram confirmed using both AP and lateral fluoroscopy. After negative aspiration for heme or cerebrospinal fluid, 5 mL of solution containing 2 mL 40 mg per mL, 80 mg total triamcinolone along with 3 mL of lidocaine 1% injected slowly. Needle retracted chcf, flushed with 1 mL of 1% lidocaine and then removed. Sterile bandage placed over injection site. No new motor deficits present in the lower extremities following procedure. The patient tolerated procedure well, carefully escorted to recovery room in stable condition. No apparent complications. After meeting discharge criteria, the patient discharged home. By: [id number] Tremaine Gerber DO /nt
[2020-03-16 09:50] VITALS: BP 144/86
--- NOTE | 2020-03-16 09:59 | NUR ---
Pain Clinic Assessment: 1. History of Osteoarthritis: HIPS B/L LEGS B/L SHOULDERS History of Rheumatoid Arthritis: Not Applicable 2. Height: 5 ft. 2 in. 157.5 cm. Weight: 179.6 lb. oz. 81.466 kg. Patient's BMI: 32.8 3. Vital Signs: BP: 144/86 Pulse: 80 Resp: 18 Temp: 02 Sat: 100 ECG Mon: 4. Pain Intensity: 6 5. Fall Risk: Dizziness: N Needs help standing or walking: Y Fallen in the last 3 months: N Fall risk comments: 6. Patient on Blood Thinner: None 7. History of Hypertension: Y 8. Opioid Therapy greater than 6 weeks: Y Opiate Contract Signed: 02/09/16 9. Risk Assessment Tool Provided: LOW-3 10. Functional Assessment Tool: 59/70 11. Recreational Drug Use: Never Drug Type: Tobacco Use: Exposure to Tobacco Smoke Tobacco Type: Amount or Packs/day: How Many Years: Alcohol Use: Yes Frequency: Quant:
== END | disposition home or self-care (01) ==
LOC: PAIN 06:51
PROVIDERS: ATTEND Anesthesiology Pain Medicine
DX: M51.16 Intervertebral disc disorders with radiculopathy, lumbar region (principal); M47.27 Other spondylosis with radiculopathy, lumbosacral region; G89.29 Other chronic pain; M19.90 Unspecified osteoarthritis, unspecified site; I10 Essential (primary) hypertension; Z98.890 Other specified postprocedural states; Z79.899 Other long term (current) drug therapy; Z79.891 Long term (current) use of opiate analgesic; Z88.0 Allergy status to penicillin; Z88.8 Allergy status to other drugs, medicaments and biological substances

== ENCOUNTER → 2020-04-27 | Outpatient (CLI) | payer OTHER ==
[~2020-04-27] VITALS: Ht 157.5 cm; Wt 90.3 kg
[~2020-04-27] MED LIST changes: +tumeric curcumin PO
[2020-04-27 08:59] VITALS: BP 134/87
[2020-04-27 09:01] VITALS: BP 134/87
--- NOTE | 2020-04-27 09:15 | NUR ---
Pain Clinic Assessment: 1. History of Osteoarthritis: HIPS B/L LEGS B/L SHOULDERS History of Rheumatoid Arthritis: Not Applicable 2. Height: 5 ft. 2 in. 157.5 cm. Weight: 199.0 lb. oz. 90.266 kg. Patient's BMI: 36.4 3. Vital Signs: BP: 134/87 Pulse: 106 Resp: 20 Temp: 02 Sat: 98 ECG Mon: 4. Pain Intensity: 5 5. Fall Risk: Dizziness: N Needs help standing or walking: Y Fallen in the last 3 months: Y Fall risk comments: 6. Patient on Blood Thinner: None 7. History of Hypertension: Y 8. Opioid Therapy greater than 6 weeks: Y Opiate Contract Signed: 02/09/16 9. Risk Assessment Tool Provided: LOW-3 10. Functional Assessment Tool: 11. Recreational Drug Use: Never Drug Type: Tobacco Use: Exposure to Tobacco Smoke Tobacco Type: Chewing Tobacco Amount or Packs/day: 4 times/day How Many Years: 73 Alcohol Use: Yes Frequency: Daily Quant: 2-3 highballs/evening
--- NOTE | 2020-04-28 12:43 | HPC ---
[facility] [place] [address] PAIN MANAGEMENT CONSULTATION Name: DOROTEO PALACIOS Room #: REG YOLY Spencer.#: [id number] Admission: 04/27/20 Attend Phys: Tremaine Gerber DO Discharge: Date of : 42 Report #: [id number] THIS REPORT FOR: cc: Chilo Means MD, Logan F. MD Johnson, James E. DO ~ DATE OF SERVICE: 04/27/2020 CHIEF COMPLAINT: Right hip pain. HISTORY OF PRESENT ILLNESS: As you know, the patient is a very pleasant 79-year-old female who reports ongoing right hip and groin pain. The patient states pain is deep and aching and sore in nature. Pain is only noted when walking, taking steps and standing from a seated position. Alleviated with medications, lying down and seated position as well as "pain patches." The patient returns today in followup visit having undergone a lumbar epidural injection with resolution of almost all of her lumbar radicular symptoms, but she is left with right hip pain. She returns to discuss options for treatment. ALLERGIES: PENICILLIN and SIMVASTATIN. CURRENT MEDICATIONS: Turmeric, hydrocodone, cetirizine, Toviaz, lisinopril, hydrochlorothiazide, omeprazole, fluticasone, Colace, and aspirin. SOCIAL HISTORY: The patient continues to use snuff. Denies IV or illicit drug use. Denies any chronic alcohol use. She is unaccompanied at today's visit. She is retired. IMAGING: No new imaging available. PQRS: The patient has known arthritic changes of the lumbar spine, bilateral hips and knees. No rheumatoid arthritis. Pain intensity today is 5/10. She is not a fall risk, has not had a fall in last 3 months, but does utilize a cane for ambulation as well as balance. The patient indicates she is not on any blood thinners, but is treated for hypertension. She is on chronic opioids, has a low to moderate addiction potential based on assessment tool. Pain impact 35/70, moderate interference of daily activities secondary to pain. PHYSICAL EXAMINATION: VITAL SIGNS: Blood pressure 134/87, pulse is 106, respiratory rate 20 and unlabored. The patient is 98% on room air. Height 5 feet 2 inches tall, weight 199 pounds and BMI calculated 36.4. GENERAL: Well-developed, well-nourished, well-hydrated, exogenously obese 79-year-old female appearing stated age. Pain is rated today 5/10, right hip. HEENT: Normocephalic, atraumatic. Pupils equal, round and reactive. [address] [address] PAIN MANAGEMENT CONSULTATION Name: DOROTEO PALACIOS Room #: REG [facility] Johanna.#: [id number] Admission: 04/27/20 Attend Phys: Tremaine Gerber DO Discharge: Date of : 41 Report #: [id number] NEUROLOGIC: Speech fluent. The patient is deemed a good historian. EXTREMITIES: Show no clubbing, no cyanosis, no edema. MUSCULOSKELETAL: Lower extremity strength is symmetrical, though there is giveaway strength noted with hip flexion on the right when compared to left, this generates pain. David's test is positive on the right and positive on the left. Gait is antalgic favoring right lower extremity over left. Seated straight leg raising negative. Supine straight leg raising appears negative at this time. Ankle clonus negative. Babinski is negative. ASSESSMENT: 1. Right hip pain. 2. Right hip osteoarthritis. 3. Chronic lumbar radiculopathy. 4. Lumbosacral spondylosis without current radicular symptoms. 5. Spinal stenosis of lumbar spine. 6. Degeneration of lumbar spine. PLAN: 1. The patient returns today in followup visit with continued right hip pain. She is able to localize pain directly over the right hip and groin area. Radiation of symptoms is only to the posterior thigh and anterior thigh consistent with a right hip osteoarthritic finding. David's test was positive on the right. Palpatory tenderness in the hip exacerbates current symptoms. The patient also reports pain upon standing and weightbearing as well as ambulating consistent with a right hip pathology. As you are aware, the patient has had changes in the left hip and likely similar changes in the right. We would recommend an intra-articular right hip injection today. If this is successful in alleviating symptoms, then this is the source of her symptoms and further treatment such as total hip arthroplasty may be recommended if long-term analgesic benefit cannot be realized. The patient is agreeable. 2. The patient has been advised risks and benefits of a right intra-articular hip injection. These risks include, but are not necessarily limited to; bleeding, bruising, infection, worsening pain, no relief of pain, temporary or permanent muscle weakness, temporary or permanent nerve damage, possible paralysis and . The patient states understood and wished to proceed. 3. No medication changes made at today's visit. We recommend the patient to continue current medical therapy as prior prescribed. 4. We will see the patient back in followup visit on an as needed basis for possible next in the series of right intra-articular hip injections or to address lumbar radicular symptoms if symptoms do reoccur. PROCEDURE NOTE DESCRIPTION OF PROCEDURE: Right intra-articular hip injection under fluoroscopic guidance. [address] [address] PAIN MANAGEMENT CONSULTATION Name: DOROTEO PALACIOS Room #: REG YOLY Matthias#: [id number] Admission: 04/27/20 Attend Phys: Tremaine Gerber DO Discharge: Date of : 41 Report #: [id number] After obtaining written consent, the patient was taken back to fluoroscopy suite, placed in a supine position. The image intensifier was then brought into position over the right hip and AP imaging was obtained. The area was marked and then sterilely prepped with chlorhexidine. A 27-gauge 1-1/4 inch needle was then used to anesthetize skin and subcutaneous tissue with 2 mL of 1% lidocaine. A 22-gauge 3-1/2 inch spinal needle with bent tip was advanced towards the proximal head of the femur on the right side. Needle was advanced until reaching the osseous structure. Needle was then retracted 1 mm and aspiration noted to be negative for heme. After negative aspiration for heme, 1 mL of Omnipaque injected. A right hip arthrogram was obtained. After negative aspiration for heme, 4 mL of a solution containing 1 mL 40 mg per mL, 40 mg total triamcinolone and 3 mL of bupivacaine 0.5% injected. Needle then retracted fdc, flushed with 1 mL of 1% lidocaine, then removed. Sterile bandage placed over injection site. There were no new motor deficits present in the lower extremities following procedure. The patient tolerated procedure well, carefully escorted to recovery room in stable condition. No apparent complications. After meeting discharge criteria, the patient discharged home. <ELECTRONICALLY SIGNED> By: Tremaine Gerber DO 04/28/20 1243 0950 [id number] Tremaine Gerber DO /nt
== END | disposition home or self-care (01) ==
LOC: PAIN 06:46
PROVIDERS: ATTEND Anesthesiology Pain Medicine
DX: M25.551 Pain in right hip (principal); M16.11 Unilateral primary osteoarthritis, right hip; M47.897 Other spondylosis, lumbosacral region; M48.061 Spinal stenosis, lumbar region without neurogenic claudication; M51.36 Other intervertebral disc degeneration, lumbar region; I10 Essential (primary) hypertension; I25.10 Atherosclerotic heart disease of native coronary artery without angina pectoris; M19.90 Unspecified osteoarthritis, unspecified site; Z98.890 Other specified postprocedural states; Z79.899 Other long term (current) drug therapy; Z88.0 Allergy status to penicillin; Z88.8 Allergy status to other drugs, medicaments and biological substances

== ENCOUNTER → 2020-06-29 | Outpatient (CLI) | payer OTHER ==
[~2020-06-29] VITALS: Ht 157.5 cm; Wt 88.9 kg
[~2020-06-29] MED LIST changes: +XARELTO20 MG PO
[2020-06-29 10:15] VITALS: BP 148/94
--- NOTE | 2020-06-29 10:20 | NUR ---
Pain Clinic Assessment: 1. History of Osteoarthritis: HIPS B/L LEGS B/L SHOULDERS History of Rheumatoid Arthritis: Not Applicable 2. Height: 5 ft. 2 in. 157.5 cm. Weight: 196.0 lb. oz. 88.905 kg. Patient's BMI: 35.8 3. Vital Signs: BP: 148/94 Pulse: 111 Resp: 18 Temp: 02 Sat: 100 ECG Mon: 4. Pain Intensity: 1 5. Fall Risk: Dizziness: N Needs help standing or walking: N Fallen in the last 3 months: N Fall risk comments: 6. Patient on Blood Thinner: XARELTO 7. History of Hypertension: Y 8. Opioid Therapy greater than 6 weeks: Y Opiate Contract Signed: 02/09/16 9. Risk Assessment Tool Provided: LOW-3 10. Functional Assessment Tool: 11. Recreational Drug Use: Never Drug Type: Tobacco Use: Exposure to Tobacco Smoke Tobacco Type: Amount or Packs/day: How Many Years: Alcohol Use: Yes Frequency: Weekly Quant: NICOLLE
--- NOTE | 2020-06-30 07:56 | HPC ---
[facility] [address] [place] [address] PAIN MANAGEMENT CONSULTATION Name: DOROTEO PALACIOS Room #: HOWARD FREDERICK Matthias#: [id number] Admission: 06/29/20 Attend Phys: Ilene Chavez Discharge: Date of : 41 Report #: [id number] THIS REPORT FOR: cc: Chilo Means MD, Logan F. MD Hocker,Ilene KENNY ~ DATE OF SERVICE: 06/29/2020 CHIEF COMPLAINT: Low back pain, left hip pain and bilateral shoulder pain. HISTORY OF PRESENT ILLNESS: This is a very pleasant 79-year-old female who returns to the pain clinic for renewal of her opioid medications. Today, she is reporting a pain score of 1/10. She reports that her neck and shoulders are her most problematic pain today though she continues to have ongoing hip tenderness. She reports that the previous hip injection that Dr. Gerber performed in April has afforded her at least 90% relief and continues to be beneficial. The patient also reports doing exercises that she learned in physical therapy on a daily basis at home and believes that has been helping as well. Overall, she believes the medication as well as lying down are beneficial. She denies any daytime somnolence or constipation as a result of her medications and would like to have refills of her hydrocodone today. The patient does report she had two blood clots since our last visit with her, one was in her right lung per her report and she is recently started on Xarelto. ALLERGIES: PENICILLIN AND ZOCOR. CURRENT LIST OF MEDICATIONS: Xarelto, turmeric, hydrocodone, Zyrtec, Toviaz, lisinopril/hydrochlorothiazide, omeprazole, Flonase, Colace, and aspirin. PQRS: 1. She has osteoarthritic changes in her lumbar spine, hips and knees. Denies any rheumatoid arthritis. 2. Height is 5 feet 2 inches, weight is 196, BMI is 35. 3. Vital signs 148/94, pulse is 111, respirations 18, oxygen sat is 100, pain score is 1/10. Fall risk. Denies dizziness, does not need help walking or standing, has not fallen in the last 3 months. The patient is on Xarelto as well as medications for her blood pressure. Her opioid therapy is greater than 6 weeks; therefore, an opioid signed contract on the chart. Risk assessment is low. Functional assessment is . 4. Recreational drug use, she denies. She uses snuff and does drink some alcohol. According to the prescription monitoring system, the patient does fill sparingly for her hydrocodone. Her last prescription fill was in March, which is appropriate for her written prescriptions. Her morphine mEq is 10-[address] [address] PAIN MANAGEMENT CONSULTATION Name: SUZANNEDOROTEO Room #: REG YOLY Rizzo#: [id number] Admission: 06/29/20 Attend Phys: Ilene Chavez Discharge: Date of : 41 Report #: [id number] on her daily dose. PHYSICAL EXAMINATION: GENERAL: This is alert and orientated, very pleasant 79-year-old who is well-developed, well-nourished, rating her pain score today at 1/10. She is exogenous obese female. HEENT: Normocephalic, atraumatic. Pupils equal, round and reactive to light. Speech is fluent and she is a good historian wearing a mask at all times. EXTREMITIES: No clubbing, no cyanosis, no edema. MUSCULOSKELETAL: Gait is antalgic favoring her right lower extremity over her left using a cane. She has tenderness in the lumbosacral region. Her straight leg raising is negative. Tenderness in her cervical spine that radiates into her trapezius area. ASSESSMENT: 1. Right hip osteoarthritis. 2. Chronic lumbar radiculopathy. 3. Lumbosacral spondylosis without current radicular symptoms. 4. Spinal stenosis of the lumbar spine. 5. Myofascial pain in the cervical region. 6. Degeneration of the lumbar spine. 7. Opioid medication management under terms of written agreement. 8. Recent pulmonary embolism, currently on Xarelto. We reviewed the fact that opiate medications are being used to provide analgesia adequate to support activities of daily living, not attempting to achieve a specific pain score on the 0-10 Visual Analog Scale. The current opiate medications are providing sufficient analgesia to allow the patient to participate in activities of daily living. The patient is not exhibiting any aberrant behavior suggestive of drug diversion. The patient is not having any adverse reactions to medications. The patient is not suffering from daytime somnolence or mental acuity changes. The patient is managing opiate-induced constipation with appropriate [id number]-[id number] agents and dietary considerations. The patient was counseled on concern for caution with operating a motor vehicle while using opiate medications. PLAN: 1. We discussed treatment options with the patient today. The patient does report a recent blood clot in her lung and currently on Xarelto. Due to this fact, we informed her she is no longer able to take any ibuprofen, Aleve, or NSAIDs orally. We encouraged her she does have increasing discomfort in her joints that she may utilize Voltaren gel since it does not have systemic effects that will hopefully decrease some of her osteoarthritic issues. 2. We will continue her on her hydrocodone 10, #75, a script for now and release in 4 weeks will be given to the patient electronically by Dr. Tremaine Gerber. The patient does utilize this very sparingly and typically last her [facility] [address] [place] [address] PAIN MANAGEMENT CONSULTATION Name: PARK PALACIOSGRADY Room #: REG [facility] Johanna.#: [id number] Admission: 06/29/20 Attend Phys: Ilene Chavez Discharge: Date of : 41 Report #: [id number] 3-4 months. 3. The patient is seen today in collaboration with Dr. Tremaine Gerber. <ELECTRONICALLY SIGNED> By: Ilene Chavez 06/30/20 0756 1055 1115 Ilene Chavez /nt
== END ==
LOC: PAIN 06:53
PROVIDERS: ATTEND Clinical Nurse Specialist Adult Health
DX: M47.27 Other spondylosis with radiculopathy, lumbosacral region (principal); M16.11 Unilateral primary osteoarthritis, right hip; M25.512 Pain in left shoulder; M48.061 Spinal stenosis, lumbar region without neurogenic claudication; M79.10 Myalgia, unspecified site; F11.20 Opioid dependence, uncomplicated; I26.90 Septic pulmonary embolism without acute cor pulmonale; Z88.8 Allergy status to other drugs, medicaments and biological substances; Z79.899 Other long term (current) drug therapy

== ENCOUNTER → 2020-09-29 | Outpatient (CLI) | payer OTHER ==
[~2020-09-29] VITALS: Ht 165.1 cm; Wt 90.4 kg
[2020-09-29 10:20] VITALS: BP 147/79
--- NOTE | 2020-09-29 10:29 | NUR ---
Pain Clinic Assessment: 1. History of Osteoarthritis: HIPS B/L LEGS B/L SHOULDERS History of Rheumatoid Arthritis: Not Applicable 2. Height: 5 ft. 5 in. 165.1 cm. Weight: 199.2 lb. oz. 90.357 kg. Patient's BMI: 33.1 3. Vital Signs: BP: 147/79 Pulse: 85 Resp: 16 Temp: 02 Sat: 98 ECG Mon: 4. Pain Intensity: 4 TO 6 WITHOUT MEDS 5. Fall Risk: Dizziness: N Needs help standing or walking: N Fallen in the last 3 months: N Fall risk comments: 6. Patient on Blood Thinner: XARELTO 7. History of Hypertension: Y 8. Opioid Therapy greater than 6 weeks: Y Opiate Contract Signed: 02/09/16 9. Risk Assessment Tool Provided: LOW-3 10. Functional Assessment Tool: 11. Recreational Drug Use: Never Drug Type: Tobacco Use: Exposure to Tobacco Smoke Tobacco Type: Amount or Packs/day: How Many Years: Alcohol Use: Yes Frequency: Weekly Quant: x2
--- NOTE | 2020-10-06 08:08 | HPC ---
[facility] [address] [place] [address] PAIN MANAGEMENT CONSULTATION Name: DOROTEO PALACIOS Room #: HOWARD FREDERICK Johanna.#: [id number] Admission: 09/29/20 Attend Phys: Ilene Chavez Discharge: Date of : 41 Report #: [id number] THIS REPORT FOR: cc: Chilo Means MD, Logan F. MD Hocker,Ilene KENNY ~ DOC #: [id number] cc: Tremaine Gerber DO, Logan Kratt, M.D. Amanda Hocker, PABLO DATE OF SERVICE: 09/29/2020 CHIEF COMPLAINT: Low back pain, left hip pain and right arm pain. HISTORY OF PRESENT ILLNESS: This is a very pleasant 80-year-old female who returns to the pain clinic today for renewal of her opioid medications. Today, she is reporting a pain score most significantly in her right hip and groin, though today she is also reporting significant neck and right arm pain. She has been going to physical therapy for her ongoing right hip and groin discomfort, continues doing her exercises on a daily basis. She does find that this has been beneficial as well as utilizing heat. She has been utilizing a cane for ambulation and balance and has found that beneficial as well. Unfortunately, during this time of rehab she did develop carpal tunnel in her right hand, but also was experiencing cervical neck pain that radiates down her right arm. Today, she does report her pain score of 4-6 without any medications. The patient reports today she has been without her opioid medications for about two weeks. The patient reports to me that she is now attending at adult daycare for activities at the [facility] 4 days a week. She does find this beneficial in helping keep her active since she is unable to travel as she had in the past due to COVID, though at times during these activities, she is more sedentary than she would like. The patient also reports she has had both her COVID vaccines. ALLERGIES: PENICILLIN AND ZOCOR. MEDICATIONS: Current list of medications hydrocodone 10/325, Xarelto, turmeric, Zyrtec, Toviaz, lisinopril/hydrochlorothiazide, omeprazole, Flonase, Colace, and aspirin. PQRS: 1. She has arthritic changes in her hips, legs and shoulders. Denies any rheumatoid arthritis. Height is 5 feet 5 inches, weight is 199. BMI is 33. 2. Vital Signs: Blood pressure 147/79, pulse is 85, respirations 16, oxygen sat is 98%. 3. Pain score 4-6 depending on activity. 4. Fall risk. Denies dizziness. Does utilize a cane, [place] [address] PAIN MANAGEMENT CONSULTATION Name: PARK PALACIOSGRADY Room #: HOWARD Rizzo#: [id number] Admission: 09/29/20 Attend Phys: Ilene Chavez Discharge: Date of : 41 Report #: [id number] last 3 months. The patient remains on Xarelto as well as medication for hypertension. 5. Opioid therapy is greater than six weeks. Therefore, an opioid signed contract is on the chart. Risk assessment is low, functional assessments . 6. Recreational drug use, she denies. She does use tobacco products and does drink alcohol. According to the prescription monitoring system, the patient last filled her medications in July utilizing them less than prescribed. Her average morphine mEq 10-20 MMES per day. We will do a urine drug screen on her at her next visit since she has been out of her medicines for at least 2 weeks. PHYSICAL EXAMINATION: GENERAL: This is alert and orientated, very pleasant 80-year-old female who appears her stated age, rating her pain score today at 4-6 depending on activity. She is a good historian and exogenous obese female. HEENT: Normocephalic, atraumatic. Pupils equal, round and reactive to light. Her speech is fluent. She is wearing a mask. EXTREMITIES: No clubbing, no cyanosis, no edema. She is wearing a brace on her right hand and wrist. MUSCULOSKELETAL: She has an antalgic gait favoring her right lower extremity over her left. She does utilize a cane at all times. Tenderness in her lumbosacral region that radiates into her hip, into her groin on the right. There is giveaway strength noted in her hip flexion on the right when compared to the left. RIVKA test is positive on the right. Seated straight leg raising is negative. Tenderness in her cervical region with radicular symptoms following a C6-C7 into her right arm. ASSESSMENT: 1. Right hip osteoarthritis. 2. Chronic lumbar radiculopathy. 3. Lumbosacral spondylosis. 4. Spinal stenosis of lumbar spine. 5. Cervical radiculopathy. 6. Degeneration of the lumbar spine. 7. Recent pulmonary embolism, currently on Xarelto. 8. Opioid medication management under terms of written agreement. PLAN: 1. We discussed treatment options with the patient today. The patient finds her medications beneficial in decreasing her pain as well as being active and doing her stretching from physical therapy. We will continue her on her hydrocodone 10/325, #75 tablets will be sent electronically by Dr. Tremaine Gerber for today and again in 4 weeks. 2. We did discuss possible injections in the future if she is able to stop her Xarelto. Today, most significant pain is in her cervical spine radiating down [facility] [address] [place] [address] PAIN MANAGEMENT CONSULTATION Name: DOROTEO PALACIOS Room #: REG YOLY Spencer.#: [id number] Admission: 09/29/20 Attend Phys: Ilene Chavez Discharge: Date of : 41 Report #: [id number] her right arm, though we have not done injections in this area that may be possible in the future or if she finds her hip to be more problematic, Dr. Tremaine Gerber can provide another injection at that location. 3. Patient instructed to call if she is able to go off her Xarelto permanently or at least for 3 days per her primary care office recommendation. Time spent in consultation, reviewing imaging, review and recent studies and clinical notes and physician reports, physical examination and correlation of findings and medical documentation to determine possible treatments, 14 minutes. Time spent in preparation for appointment reviewing prescription monitoring report, previous records and treatment options and reviewing current medications, 5 minutes. Time spent preparing and sending electronic prescriptions with collaborating physician, Dr. Tremaine Gerber, and documentation of visit and plan of treatment, 6 minutes. Total time spent 25 minutes. PABLO Kaba/DEBORAH/LEONARD <ELECTRONICALLY SIGNED> By: Ilene Chavez 10/06/20 0808 1343 29 Ilene Chavez /aminta
== END ==
LOC: PAIN 09:37
PROVIDERS: ATTEND Clinical Nurse Specialist Adult Health
DX: M16.11 Unilateral primary osteoarthritis, right hip (principal); M47.27 Other spondylosis with radiculopathy, lumbosacral region; M54.12 Radiculopathy, cervical region; I26.90 Septic pulmonary embolism without acute cor pulmonale; F11.20 Opioid dependence, uncomplicated

== ENCOUNTER → 2020-11-30 | Outpatient (CLI) | payer OTHER ==
[~2020-11-30] VITALS: Ht 165.1 cm; Wt 91.9 kg
[2020-11-30 13:43] VITALS: BP 138/86
--- NOTE | 2020-11-30 14:04 | NUR ---
Pain Clinic Assessment: 1. History of Osteoarthritis: HIPS B/L LEGS B/L SHOULDERS History of Rheumatoid Arthritis: Not Applicable 2. Height: 5 ft. 5 in. 165.1 cm. Weight: 202.6 lb. oz. 91.899 kg. Patient's BMI: 33.7 3. Vital Signs: BP: 138/86 Pulse: 90 Resp: 20 Temp: 02 Sat: 97 ECG Mon: 4. Pain Intensity: 7 5. Fall Risk: Dizziness: N Needs help standing or walking: Y Fallen in the last 3 months: N Fall risk comments: 6. Patient on Blood Thinner: None 7. History of Hypertension: Y 8. Opioid Therapy greater than 6 weeks: Y Opiate Contract Signed: 02/09/16 9. Risk Assessment Tool Provided: LOW-3 10. Functional Assessment Tool: 11. Recreational Drug Use: Never Drug Type: Tobacco Use: Exposure to Tobacco Smoke Tobacco Type: Amount or Packs/day: How Many Years: Alcohol Use: Yes Frequency: Weekly Quant: 3
--- NOTE | 2020-12-03 12:39 | HPC ---
[facility] [place] [address] PAIN MANAGEMENT CONSULTATION Name: DOROTEO PALACIOS Room #: REG YOLY ChangTaranMiguel.#: [id number] Admission: 11/30/20 Attend Phys: Tremaine Gerber DO Discharge: Date of : 42 Report #: [id number] THIS REPORT FOR: cc: Chilo Means MD, Logan F. MD Johnson, James E. DO ~ DOC #: [id number] cc: Chilo Gerber DO DATE OF SERVICE: 11/30/2020 CHIEF COMPLAINT: Right hip pain. HISTORY OF PRESENT ILLNESS: As you know, the patient is a very pleasant 80-year-old female returning in followup visit with right hip and groin pain. She reports recurrence of pain without inciting injury or trauma. She underwent a right intra-articular hip injection 04/27/2020 with near 100% improvement in overall pain. Unfortunately, her symptoms did reoccur. She is denying any injury or trauma. She is placing current pain score 7/10. She returns today requesting a right intra-articular hip injection to build on success of previous intervention. She is also requesting refill on medications. She is going to run out in the next couple of days, which is consistent with taking the medication as directed. ALLERGIES: PENICILLIN, SIMVASTATIN, AMLODIPINE, SERTRALINE. CURRENT MEDICATIONS: Furosemide, hydrocodone, cetirizine, Toviaz, lisinopril, hydrochlorothiazide, omeprazole, docusate sodium, aspirin. SOCIAL HISTORY: The patient denies tobacco use. Denies IV or illicit drug use. Admits to occasional alcohol beverage. She is unaccompanied at today's visit. She is retired. PQRS: Known arthritic changes of bilateral hips, knees, lumbar spine or shoulders. She denies rheumatoid arthritis. She is a fall risk, but has not had a fall in last 3 months. She utilizes a cane for ambulation. She is not on blood thinners, but history of hypertension. She is on chronic opioids with low opioid addiction potential based on assessment tool. Pain impact moderate interference of daily activities secondary to pain. PHYSICAL EXAMINATION: VITAL SIGNS: Blood pressure 138/86, pulse 90, respiratory rate 20, unlabored. She is 97% on room air. Height 5 feet 5 inches tall, weight 202.6 pounds, BMI calculated 33.7. GENERAL: Well-developed, well-nourished, well-hydrated 80-year-old female appearing her stated age, pain is rated today at a 7/10. [address] [address] PAIN MANAGEMENT CONSULTATION Name: DOROTEO PALACIOS Room #: REG YOLY Rizzo#: [id number] Admission: 11/30/20 Attend Phys: Tremaine Gerber DO Discharge: Date of : 41 Report #: [id number] HEENT: Normocephalic, atraumatic. EXTREMITIES: Show no clubbing, no cyanosis. No appreciable edema. MUSCULOSKELETAL: Gait is antalgic favoring right lower extremity. She is utilizing a cane for ambulation and balance. There is tenderness to palpation over the groin area with pain radiating down the anterior thigh with standing from a seated position. There is some mild palpatory tenderness over the SI joint on the right. ASSESSMENT: 1. Right hip pain. 2. Right hip osteoarthritis. 3. Chronic lumbar radiculopathy. 4. Lumbosacral spondylosis with radiculopathy. 5. Spinal stenosis of lumbar spine. 6. Degeneration of lumbar spine. 7. Opioid dependency. 8. Complicated medication management utilizing scheduled medications. PLAN: 1. The patient returns today in followup visit requesting to undergo a right intra-articular hip injection under fluoroscopic guidance. The patient noted excellent benefit with the previous right intra-articular hip injection and hopeful to see similar improvement today. She has been advised the risks and the benefits of the procedure, states understood and wished to proceed. 2. The patient will submit to urine drug screen as part of our screening process for opioid management patients. She reports she last took her medication 11/29/2020 at 2130. Results of this drug screen will be available to the patient next week. 3. We reviewed the fact that opiate medications are being used to provide analgesia adequate to support activities of daily living, not attempting to achieve a specific pain score on the 0-10 Visual Analog Scale. The current opiate medications are providing sufficient analgesia to allow the patient to participate in activities of daily living. The patient is not exhibiting any aberrant behavior suggestive of drug diversion. The patient is not having any adverse reactions to medications. The patient is not suffering from daytime somnolence or mental acuity changes. The patient is managing opiate-induced constipation with appropriate apka-byu-rmvjayc agents and dietary considerations. The patient was counseled on concern for caution with operating a motor vehicle while using opiate medications. A physical exam was performed and the patient's functional status was evaluated. All patients with back pain were advised against the bed rest greater than 4 days and were advised to return to normal activities. Pain score assessment was noted and the treatment plan was reviewed with the patient. All current medications, both prescribed and OTC were reviewed and reconciled on the electronic medical record. Tobacco screening was accomplished and smoking [address] [address] PAIN MANAGEMENT CONSULTATION Name: DOROTEO PALACIOS Room #: HOWARD Spencer.#: [id number] Admission: 11/30/20 Attend Phys: Tremaine Gerber DO Discharge: Date of : 42 Report #: [id number] cessation was advised when indicated. BMI was noted and diet/exercise modification was recommended for all patients following outside normal parameters. I reviewed with the patient today their responsibilities to safeguard prescription medications, reviewed their responsibility to utilize medications only as prescribed by the physician. They are to seek and receive pain medications only from 1 physician group ( [facility]). They are to use 1 pharmacy and keep the clinic informed if they change pharmacies. Their responsibilities include making followup visits in a timely fashion and to avoid abrupt discontinuation of medication usage. Their responsibilities further include bringing their medications (bottles from the pharmacy with residual pills) to the visit for possible confirmation of pill counts and the patient understands it is their responsibility to submit to random drug screens to ensure both that the medications prescribed are present, and that no other controlled substances are present. All prescriptions provided today were generated electronically. 4. The patient was provided prescription of hydrocodone/acetaminophen 10/325 mg dose 1 tab p.o. q.6 hours p.r.n. pain given the patient #75 tablets to release today and 4 weeks from today 2 months' worth of medication. Prescriptions sent via [facility] local pharmacy. 5. We will see the patient back in followup visit on an as needed basis. We are hopeful the patient will see good benefit with today's right intra-articular hip injection under fluoroscopic guidance. PROCEDURE NOTE DESCRIPTION OF PROCEDURE: Right intra-articular hip injection under fluoroscopic guidance. After obtaining written consent, the patient was taken back to fluoroscopy suite, placed in a supine position. The image intensifier was then brought into position over the right hip and AP imaging was obtained. The area was marked and then sterilely prepped with chlorhexidine. A 27-gauge 1-1/4-inch needle was then used to anesthetize skin and subcutaneous tissue with 3 mL of preservative free 1% lidocaine. A 3-1/2 inch spinal needle with bent tip was advanced towards the proximal head of the femur on the right side. Needle was advanced until reaching the osseous structure. Needle was then retracted approximately 1 mm and aspiration noted to be negative for heme. After negative aspiration for heme, 1 mL of Omnipaque injected demonstrating an excellent right hip arthrogram. After negative aspiration for heme 4 mL of a solution containing 1 mL 40 mg per mL, 40 mg total triamcinolone and 3 mL bupivacaine 0.5% injected slowly. Needle retracted prison flushed with 1 mL of 1% lidocaine and then removed. Sterile bandage placed over injection site. No new motor deficits present in the lower [address] [address] PAIN MANAGEMENT CONSULTATION Name: DOROTEO PALACIOS Room #: REG YOLY Rizzo#: [id number] Admission: 11/30/20 Attend Phys: Tremaine Gerber DO Discharge: Date of : 42 Report #: [id number] extremities, following procedure. The patient tolerated the procedure well, carefully escorted to recovery room in stable condition. VAS before procedure rated at 7/10, VAS 15 minutes after procedure 0/10. After meeting our discharge criteria, the patient discharged home. DO DE Whelan/MARGI/GRZEGORZ <ELECTRONICALLY SIGNED> By: Tremaine Gerber DO 12/03/20 1239 [id number] Tremaine Gerber DO /nt
== END | disposition home or self-care (01) ==
LOC: PAIN 08:19
PROVIDERS: ATTEND Anesthesiology Pain Medicine
DX: M25.551 Pain in right hip (principal); M16.11 Unilateral primary osteoarthritis, right hip; M51.16 Intervertebral disc disorders with radiculopathy, lumbar region; M47.27 Other spondylosis with radiculopathy, lumbosacral region; M48.061 Spinal stenosis, lumbar region without neurogenic claudication; G89.29 Other chronic pain; I10 Essential (primary) hypertension; M19.90 Unspecified osteoarthritis, unspecified site; F11.20 Opioid dependence, uncomplicated; Z98.890 Other specified postprocedural states; Z79.899 Other long term (current) drug therapy

== ENCOUNTER → 2021-02-22 | Outpatient (CLI) | payer OTHER ==
[~2021-02-22] VITALS: Ht 152.4 cm; Wt 90.7 kg
[~2021-02-22] MED LIST changes: +MIRALAX119 GM PO
[2021-02-22 08:58] VITALS: BP 141/85
--- NOTE | 2021-02-22 09:03 | NUR ---
Pain Clinic Assessment: 1. History of Osteoarthritis: HIPS B/L LEGS B/L SHOULDERS History of Rheumatoid Arthritis: Not Applicable 2. Height: 5 ft. 0 in. 152.4 cm. Weight: 200.0 lb. oz. 90.720 kg. Patient's BMI: 39.1 3. Vital Signs: BP: 141/85 Pulse: 105 Resp: 18 Temp: 02 Sat: 95 ECG Mon: 4. Pain Intensity: 4 5. Fall Risk: Dizziness: N Needs help standing or walking: N Fallen in the last 3 months: N Fall risk comments: 6. Patient on Blood Thinner: None 7. History of Hypertension: Y 8. Opioid Therapy greater than 6 weeks: Y Opiate Contract Signed: 02/09/16 9. Risk Assessment Tool Provided: LOW-3 10. Functional Assessment Tool: 11. Recreational Drug Use: Never Drug Type: Tobacco Use: Exposure to Tobacco Smoke Tobacco Type: Amount or Packs/day: How Many Years: Alcohol Use: Yes Frequency: Weekly Quant: 6
--- NOTE | 2021-02-23 08:08 | HPC ---
[facility] [place] [address] PAIN MANAGEMENT CONSULTATION Name: DOROTEO PALACIOS Room #: REG YOLY Johanna.#: [id number] Admission: 02/22/21 Attend Phys: Ilene Chavez Discharge: Date of : 41 Report #: [id number] THIS REPORT FOR: cc: Chilo Means MD, Logan F. MD Hocker,Ilene KENNY ~ cc: Tremaine Gerber DO, Logan Kratt, M.D. DATE OF SERVICE: 02/22/2021 CHIEF COMPLAINT: Low back pain and right hip pain. HISTORY OF PRESENT ILLNESS: This is a very pleasant 80-year-old female who returns to the pain clinic today for renewal of her opioid medications. She reports that the right intra-articular joint injection that Dr. Tremaine Gerber performed in November afforded her at least 100% relief and she reports continued relief from that injection. Today, she is here to refill her hydrocodone that she takes very sparingly. Prior to a trip, she is planning to take to [place] next week. She describes her pain as a soreness, throbbing sensation, especially when she is active. Today, she is rating it a 4/10, located in her low back and groins bilaterally, but greater on the right. The patient does report she is very active, going to adult daycare where she performs exercises 3 times a week. She also plays cards that helps with her mentation and enjoys the social outing. The patient denies any daytime somnolence or constipation as a result of her opioid medications. ALLERGIES: PENICILLIN, SIMVASTATIN, NORVASC, ZOLOFT. CURRENT LIST OF MEDICATIONS: MiraLax, hydrocodone 10/325 p.r.n., Lasix p.r.n., Zyrtec, Toviaz, lisinopril, hydrochlorothiazide, omeprazole, Flonase, Colace and aspirin. PQRS: 1. She has osteoarthritic issues in her hips, legs and shoulders. Denies any rheumatoid arthritis. Height is 5 feet, weight is 200, BMI is 39. 2. Vital signs 141/85, pulse is 105, respirations 18, oxygen sat is 95%. 3. Pain score is 4/10. 4. Denies dizziness, does not need help walking or standing. Does use a cane at times. Has not fallen in the last 3 months. 5. The patient is not on blood thinners, but does take medicine for hypertension. Opioid therapy is greater than 6 weeks; therefore, an opioid signed contract is on the chart. 6. Risk assessment is low. Functional assessment is 24/70. 7. Recreational drug use, she denies. She does use chewing tobacco and does drink alcoholic beverages about 3 times per week. [address] [address] PAIN MANAGEMENT CONSULTATION Name: DOROTEO PALACIOS Room #: REG YOLY Rizzo#: [id number] Admission: 02/22/21 Attend Phys: Ilene Chavez Discharge: Date of : 42 Report #: [id number] According to the prescription monitoring system, the patient is filling appropriately. She takes her medicines very sparingly and does not fill these on monthly basis. Her morphine milliequivalent is 15-20 MMES. There is a urine drug screen that was checked at her last visit. We did discuss the alcohol content being quite high. The patient reports having scotch and Sprite daily. She reports she has decreased this since our last visit and now takes it 3 times a week. She also reports not taking her opioid medications and not any alcohol at the same. PHYSICAL EXAMINATION: GENERAL: This is a well-developed, well-nourished, well-hydrated, slightly obese 80-year-old female who appears her stated age, rating her current pain score today at 4/10. HEENT: Normocephalic, atraumatic. Extraocular eye muscles are intact. She is wearing a mask for COVID precautions. EXTREMITIES: No clubbing, no cyanosis. A 1+ edema in her right foot. She does have compression socks on. MUSCULOSKELETAL: She is utilizing a cane for ambulation today and has an antalgic gait. Tenderness over her groin area that radiates into her thigh, greater on the right than the left. She has some tenderness in the lumbosacral region as well. ASSESSMENT: 1. Right hip pain. 2. Right hip osteoarthritis. 3. Chronic lumbar radiculopathy. 4. Lumbosacral spondylosis with radiculopathy. 5. Spinal stenosis of lumbar spine. 6. Degeneration of the lumbar spine. 7. Complicated medical management utilizing scheduled opioid medications. We reviewed the fact that opiate medications are being used to provide analgesia adequate to support activities of daily living, not attempting to achieve a specific pain score on the 0-10 Visual Analog Scale. The current opiate medications are providing sufficient analgesia to allow the patient to participate in activities of daily living. The patient is not exhibiting any aberrant behavior suggestive of drug diversion. The patient is not having any adverse reactions to medications. The patient is not suffering from daytime somnolence or mental acuity changes. The patient is managing opiate-induced constipation with appropriate bebq-aoz-yoebrtr agents and dietary considerations. The patient was counseled on concern for caution with operating a motor vehicle while using opiate medications. A physical exam was performed and the patient's functional status was evaluated. All patients with back pain were advised against the bed rest greater than 4 days and were advised to return to normal activities. Pain score assessment was [facility] [address] [place] [address] PAIN MANAGEMENT CONSULTATION Name: DOROTEO PALACIOS Room #: REG [facility].#: [id number] Admission: 02/22/21 Attend Phys: Ilene Chavez Discharge: Date of : 42 Report #: [id number] noted and the treatment plan was reviewed with the patient. All current medications, both prescribed and OTC were reviewed and reconciled on the electronic medical record. Tobacco screening was accomplished and smoking cessation was advised when indicated. BMI was noted and diet/exercise modification was recommended for all patients following outside normal parameters. I reviewed with the patient today their responsibilities to safeguard prescription medications, reviewed their responsibility to utilize medications only as prescribed by the physician. They are to seek and receive pain medications only from 1 physician group ( [facility]). They are to use 1 pharmacy and keep the clinic informed if they change pharmacies. Their responsibilities include making followup visits in a timely fashion and to avoid abrupt discontinuation of medication usage. Their responsibilities further include bringing their medications (bottles from the pharmacy with residual pills) to the visit for possible confirmation of pill counts and the patient understands it is their responsibility to submit to random drug screens to ensure both that the medications prescribed are present, and that no other controlled substances are present. All prescriptions provided today were generated electronically. PLAN: 1. We discussed treatment options with the patient today. The patient found the intra-articular right hip injection to be 100% beneficial and has slightly returned at this visit. She is hopeful to not need another injection for at least a year, but she finds them very beneficial. 2. She would like to continue her hydrocodone 10/325. She does not take these on a daily basis, but when she is more active. Her last fill was in December and she still has several pills left, per her report. We will continue this medication, having Dr. Tremaine Gerber sent electronically for hydrocodone 10/325, #75 for today and 4-week release. 3. We did discuss her alcohol intake. The patient reports that she was drinking daily, but has decreased that to 3 times a week and is very careful not to mix alcohol and her opioids. 4. The patient will return in 2-3 months or as needed for medication refills. Time spent with the patient in consultation, reviewing recent studies and clinical notes and physician reports, physical examination and correlation of physical findings and medical documentation to determine possible treatment options 16 minutes. Time spent in preparation for appointment, reviewing prescription monitoring system reports, reviewing previous records and proposed treatment options, reviewing current medications 6 minutes. Time spent in preparing and sending electronic prescriptions with collaborating physician, [place] [address] PAIN MANAGEMENT CONSULTATION Name: DOROTEO PALACIOS Room #: REG YOLY Rizzo#: [id number] Admission: 02/22/21 Attend Phys: Ilene Chavez Discharge: Date of : 41 Report #: [id number] Tremaine Gerber, documentation of visit and plan of treatment 5 minutes. Total time spent 27 minutes. <ELECTRONICALLY SIGNED> By: Ilene Chavez 02/23/21 0808 [id number] [id number] Ilene Chavez /nt
== END ==
LOC: PAIN 07:02
PROVIDERS: ATTEND Clinical Nurse Specialist Adult Health
DX: M16.11 Unilateral primary osteoarthritis, right hip (principal); M47.26 Other spondylosis with radiculopathy, lumbar region; M47.27 Other spondylosis with radiculopathy, lumbosacral region; M48.061 Spinal stenosis, lumbar region without neurogenic claudication; M48.07 Spinal stenosis, lumbosacral region

== ENCOUNTER → 2021-05-31 | Outpatient (CLI) | payer OTHER ==
[~2021-05-31] VITALS: Ht 165.1 cm; Wt 85.0 kg
[2021-05-31 08:29] VITALS: BP 128/75
--- NOTE | 2021-05-31 08:45 | NUR ---
Pain Clinic Assessment: 1. History of Osteoarthritis: HIPS B/L LEGS B/L SHOULDERS History of Rheumatoid Arthritis: Not Applicable 2. Height: 5 ft. 5 in. 165.1 cm. Weight: 187.4 lb. oz. 85.004 kg. Patient's BMI: 31.2 3. Vital Signs: BP: 128/75 Pulse: 99 Resp: 20 Temp: 02 Sat: 99 ECG Mon: 4. Pain Intensity: 3 5. Fall Risk: Dizziness: N Needs help standing or walking: Y Fallen in the last 3 months: N Fall risk comments: 6. Patient on Blood Thinner: None 7. History of Hypertension: Y 8. Opioid Therapy greater than 6 weeks: Y Opiate Contract Signed: 02/09/16 9. Risk Assessment Tool Provided: LOW-3 10. Functional Assessment Tool: 11. Recreational Drug Use: Never Drug Type: Tobacco Use: Exposure to Tobacco Smoke Tobacco Type: Amount or Packs/day: How Many Years: Alcohol Use: Yes Frequency: Quant:
== END ==
LOC: PAIN 06:57
PROVIDERS: ATTEND Clinical Nurse Specialist Adult Health
DX: M47.27 Other spondylosis with radiculopathy, lumbosacral region (principal); M48.061 Spinal stenosis, lumbar region without neurogenic claudication; M47.26 Other spondylosis with radiculopathy, lumbar region; M19.90 Unspecified osteoarthritis, unspecified site; Z88.8 Allergy status to other drugs, medicaments and biological substances; Z79.82 Long term (current) use of aspirin; Z79.899 Other long term (current) drug therapy